=== PATIENT | male | born 1995 | race Caucasian/White ===

== ENCOUNTER 2016-11-12 19:50 | Emergency (ER) | payer BC ==
[~2016-11-12] VITALS: Ht 172.7 cm; Wt 56.7 kg
[2016-11-12] MEDS ORDERED: TETANUS/DIPHTHERIA TOX ADSORB ADULT 0.5ML SYR/VIAL (90714) IM ONE (20:15)
[2016-11-12 21:03] VITALS: BP 134/76
--- NOTE | 2016-11-15 10:38 | REP ---
Clinical: Trauma . Comparison: None . Findings: The ventricles, sulci, and cisterns are normal in position and appearance. Schaffer-white differentiation is maintained. No acute intracranial hemorrhage, mass, pathology or trauma/injury. Cystic structure in the left temporal fossa likely represents arachnoid cyst. No evidence for acute infarction. No extra-axial fluid collection. Calvarium is intact. Paranasal sinuses and mastoid air cells are clear. Impression: Presumed arachnoid cyst in the left temporal fossa. No evidence for acute intracranial pathology or trauma/injury. Signed by Felipe Delgado MD 11/15/2016 10:29 A
--- NOTE | 2016-11-19 15:29 | ED PDOC ---
Post-Departure Follow-Up certitied letter sent to pt re formal read of ct head for fu Leslie Richardson MD Nov 19, 2016 15:29
== END 2016-11-12 21:08 | disposition home or self-care (01) ==
LOC: EDBD 19:50 → M ED 20:50
DX: R55 Syncope and collapse (principal); S61.212A Laceration without foreign body of right middle finger without damage to nail, initial encounter; W18.09XA Striking against other object with subsequent fall, initial encounter; Y92.830 Public park as the place of occurrence of the external cause; Y93.89 Activity, other specified; Y99.8 Other external cause status; F32.9 Major depressive disorder, single episode, unspecified; R41.9 Unspecified symptoms and signs involving cognitive functions and awareness

== ENCOUNTER 2017-04-06 12:50 | Emergency (ER) | payer BC ==
[~2017-04-06] VITALS: Ht 172.7 cm; Wt 56.8 kg
[2017-04-06 12:50] VITALS: BP 128/81
[2017-04-06] MEDS ORDERED: PENI500T PO (14:30)
[2017-04-06] MEDS ORDERED: NORCOTAB PO (14:30)
== END 2017-04-06 14:38 | disposition home or self-care (01) ==
LOC: M ED 12:50
DX: K04.7 Periapical abscess without sinus (principal); K02.9 Dental caries, unspecified; F17.210 Nicotine dependence, cigarettes, uncomplicated

== ENCOUNTER 2017-06-28 23:17 | Inpatient (IN) | payer BC ==
[2017-06-29 00:40] LABS: MEAN CORPUSCULAR HEMOGLOBIN 28.3 pg (27.0-33.0); MEAN CORPUSCULAR HGB CONC 33.3 g/dl (32.0-36.5); PLATELET COUNT, AUTOMATED 289 10^3/uL (150-450); RED BLOOD COUNT 4.94 10^6/uL (4.30-6.10); WHITE BLOOD COUNT 8.8 10^3/uL (4.0-10.0)
[2017-06-29 01:09] LABS: CALCIUM OXALATE CRYSTALS RFX SMALL; KETONE, URINE AUTO RFX TRACE mg/dL (NEGATIVE); LEUKOCYTE ESTERASE UR AUTO RFX NEGATIVE (NEGATIVE); MUCUS, URINE RFX SMALL (NEGATIVE); NITRITE, URINE AUTO RFX NEGATIVE (NEGATIVE); RBC, URINE AUTO RFX 1 /HPF (0-3); SQUAM EPITHELIAL CELL UR AURFX 0 /HPF (0-6); WBC, URINE AUTO RFX 1 /HPF (0-3)
[2017-06-29 01:16] LABS: AMPHETAMINES LEVEL URINE NEGATIVE (NEGATIVE); BARBITURATES URINE NEGATIVE (NEGATIVE); BENZODIAZEPINES URINE NEGATIVE (NEGATIVE); CANNABINOIDS URINE POSITIVE (NEGATIVE); COCAINE METABOLITE URINE NEGATIVE (NEGATIVE); METHADONE URINE NEGATIVE (NEGATIVE); OPIATES URINE NEGATIVE (NEGATIVE); PHENCYCLIDINE URINE NEGATIVE (NEGATIVE)
[2017-06-29 01:25] LABS: ALBUMIN 4.6 GM/DL (3.2-5.2); ALBUMIN/GLOBULIN RATIO 1.53 (1.00-1.93); ALKALINE PHOSPHATASE 73 U/L (45-117); ALT/SGPT 20 U/L (12-78); ANION GAP 9 MEQ/L (8-16); AST/SGOT 12 U/L (7-37); BILIRUBIN,DIRECT 0.2 MG/DL (0.0-0.2); BILIRUBIN,TOTAL 0.7 MG/DL (0.2-1.0); BLOOD UREA NITROGEN 14 MG/DL (7-18); CALCIUM LEVEL 9.2 MG/DL (8.5-10.1); CARBON DIOXIDE LEVEL 28 MEQ/L (21-32); CHLORIDE LEVEL 105 MEQ/L (98-107); CREATININE FOR GFR 1.06 MG/DL (0.70-1.30); GLOMERULAR FILTRATION RATE > 60.0 (>60); GLUCOSE, FASTING 88 MG/DL (70-105); POTASSIUM SERUM 3.6 MEQ/L (3.5-5.1); SALICYLATE LEVEL < 1.7 MG/DL (5.0-30.0); SODIUM LEVEL 142 MEQ/L (136-145); TOTAL PROTEIN 7.6 GM/DL (6.4-8.2)
[2017-06-29 01:31] LABS: ACETAMINOPHEN LEVEL < 2.0 UG/ML (10.0-30.0); ETHYL ALCOHOL (ETHANOL) < 0.003 % (0.000-0.010)
[2017-06-29] MEDS ORDERED: MAALOX 30 ML SUSP *UDC PO (02:00)
[2017-06-29] MEDS ORDERED: ACETAMINOPHEN TAB 650MG DOSE (2X325MG) PO (02:00)
[2017-06-29] MEDS: traZODone 50 MG TAB PO ×2 (04:19→20:05)
[2017-06-29] MEDS: hydrOXYzine 50 MG TAB PO (04:19)
[2017-06-29] MEDS: NICOTINE 21MG/24HR 1 EA TRANSDERMAL TD (08:50)
[2017-06-29] MEDS: OLANZapine ORAL DISINTEGRATING TAB 5MG PO ×2 (09:42→20:06)
[2017-06-29] MEDS: LORazepam 1 MG TAB PO ×2 (10:22→20:05)
[2017-06-29] MEDS: ARIPiprazole 15 MG TAB (AbiLIFY) PO ×2 (10:22→20:06)
[2017-06-30] MEDS: ARIPiprazole 15 MG TAB (AbiLIFY) PO (08:03)
[2017-06-30] MEDS: NICOTINE 21MG/24HR 1 EA TRANSDERMAL TD (08:06)
[2017-06-30] MEDS: INFLUENZA QUADRIVALENT PF VACCINE 0.5ML SYRINGE (90686) IM (08:07)
[2017-06-30] MEDS: ARIPiprazole 10 MG TAB PO (20:19)
[2017-06-30] MEDS: traZODone 50 MG TAB PO (20:45)
[2017-06-30] MEDS: LORazepam 1 MG TAB PO (20:45)
[2017-07-01] MEDS: ARIPiprazole 10 MG TAB PO ×2 (08:04→20:34)
[2017-07-01] MEDS: NICOTINE 21MG/24HR 1 EA TRANSDERMAL TD (08:05)
[2017-07-01] MEDS: MOM 30ML SUSPENSION UDC PO (08:57)
[2017-07-01] MEDS: traZODone 50 MG TAB PO (20:34)
[2017-07-02] MEDS: NICOTINE 21MG/24HR 1 EA TRANSDERMAL TD ×2 (09:00→09:43)
[2017-07-02] MEDS: ARIPiprazole 10 MG TAB PO ×2 (09:01→21:43)
[2017-07-02] MEDS: traZODone 50 MG TAB PO (21:43)
[2017-07-03] MEDS: ARIPiprazole 10 MG TAB PO (08:15)
[2017-07-03] MEDS: NICOTINE 21MG/24HR 1 EA TRANSDERMAL TD (08:16)
== END 2017-07-03 11:30 | disposition home or self-care (01) | DRG 753 ==
LOC: M ED 23:17 → M ED INP 06-29 01:59 → M PSY 06-29 03:01
DX: F31.9 Bipolar disorder, unspecified (principal); F19.94 Other psychoactive substance use, unspecified with psychoactive substance-induced mood disorder; F12.90 Cannabis use, unspecified, uncomplicated; F79 Unspecified intellectual disabilities; Z79.899 Other long term (current) drug therapy; F17.200 Nicotine dependence, unspecified, uncomplicated

== ENCOUNTER → 2017-06-28 | Outpatient (REF) | payer BC ==
[2017-06-29 14:36] LABS: AMPHETAMINES URINE REFLEX NEGATIVE (NEGATIVE); BARBITURATES URINE REFLEX NEGATIVE (NEGATIVE); BENZODIAZEPINES URINE REFLEX NEGATIVE (NEGATIVE); COCAINE METABOLITE URINE REFLE NEGATIVE (NEGATIVE); METHADONE URINE REFLEX NEGATIVE (NEGATIVE); OPIATES URINE REFLEX NEGATIVE (NEGATIVE); PHENCYCLIDINE URINE REFLEX NEGATIVE (NEGATIVE)
[2017-06-29 14:50] LABS: CANNABINOIDS URINE REFLEX POSITIVE (NEGATIVE)
[2017-07-04 08:07] LABS: Cannabinoid Positive (.); GC Carboxy THC 126 ng/mL (Cutoff=10)
== END ==
LOC: M OUTALCOH 06-29 12:50
DX: F12.10 Cannabis abuse, uncomplicated (principal)
CPT/HCPCS: G0480

== ENCOUNTER 2017-07-07 18:38 | Emergency (ER) | payer BC ==
[2017-07-07] MEDS: ONDANSETRON 4 MG ORAL DISINTEGRATING TAB (S0181) PO (20:03)
== END 2017-07-07 20:14 | disposition home or self-care (01) ==
LOC: M ED 18:38
DX: R10.13 Epigastric pain (principal); R11.0 Nausea; T50.905A Adverse effect of unspecified drugs, medicaments and biological substances, initial encounter; Y92.89 Other specified places as the place of occurrence of the external cause; F31.9 Bipolar disorder, unspecified; F41.9 Anxiety disorder, unspecified; F17.210 Nicotine dependence, cigarettes, uncomplicated; Z79.899 Other long term (current) drug therapy
CPT/HCPCS: 99283

== ENCOUNTER → 2017-07-16 | Outpatient (CLI) | payer BC ==
[2017-07-16 17:30] LABS: CHOLESTEROL LEVEL 139 MG/DL (<200); CHOLESTEROL RISK RATIO 2.044 (<5); HDL CHOLESTEROL 68 MG/DL (>40); NON-HDL-C 71 MG/DL; TRIGLYCERIDES LEVEL 145 MG/DL (<150)
[2017-07-16 17:37] LABS: BASO # 0.1 10^3/uL (0.0-0.2); BASO % 0.7 % (0.0-1.0); EOS # 0.4 10^3/uL (0.0-0.50); EOS % 4.6 % (0.0-3.0); HEMATOCRIT 42.9 % (42.0-52.0); HEMOGLOBIN 14.1 g/dl (14.0-18.0); IMMATURE GRANULOCYTE % 0.5 % (0-0); LYMPH # 2.7 10^3/uL (1.5-6.5); LYMPH % 35.6 % (24.0-44.0); MEAN CORPUSCULAR HEMOGLOBIN 28.7 pg (27.0-33.0); MEAN CORPUSCULAR HGB CONC 32.9 g/dl (32.0-36.5); MEAN CORPUSCULAR VOLUME 87.4 fl (80.0-96.0); MONO # 0.4 10^3/uL (0.0-0.8); MONO % 5.7 % (0.0-5.0); NEUTROPHILS # 4.1 10^3/uL (1.8-7.7); NEUTROPHILS % 52.9 % (36.0-66.0); PLATELET COUNT, AUTOMATED 260 10^3/uL (150-450); RED BLOOD COUNT 4.91 10^6/uL (4.30-6.10); RED CELL DISTRIBUTION WIDTH 12.4 % (11.5-14.5); WHITE BLOOD COUNT 7.7 10^3/uL (4.0-10.0)
[2017-07-16 17:38] LABS: ESTIMATED AVERAGE GLUCOSE 111 MG/DL (60-110); HEMOGLOBIN A1c 5.5 %
[2017-07-16 17:48] LABS: TOTAL 25(OH) VITAMIN D 31.4 NG/ML (30.0-100.0)
== END ==
LOC: M LAB 15:32
DX: F31.2 Bipolar disorder, current episode manic severe with psychotic features (principal)

== ENCOUNTER → 2017-08-09 | Outpatient (REF) | payer BC ==
[2017-08-09 13:23] LABS: BASO # 0.1 10^3/uL (0.0-0.2); BASO % 0.8 % (0.0-1.0); EOS # 0.5 10^3/uL (0.0-0.50); EOS % 6.8 % (0.0-3.0); HEMATOCRIT 44.3 % (42.0-52.0); HEMOGLOBIN 14.8 g/dl (14.0-18.0); IMMATURE GRANULOCYTE % 0.3 % (0-3.0); LYMPH # 2.4 10^3/uL (1.5-6.5); MEAN CORPUSCULAR HEMOGLOBIN 28.7 pg (27.0-33.0); MEAN CORPUSCULAR HGB CONC 33.4 g/dl (32.0-36.5); MONO # 0.6 10^3/uL (0.0-0.8); NEUTROPHILS # 3.8 10^3/uL (1.8-7.7); NEUTROPHILS % 51.1 % (36.0-66.0); PLATELET COUNT, AUTOMATED 292 10^3/uL (150-450); RED BLOOD COUNT 5.15 10^6/uL (4.30-6.10); RED CELL DISTRIBUTION WIDTH 12.5 % (11.5-14.5); WHITE BLOOD COUNT 7.3 10^3/uL (4.0-10.0)
[2017-08-09 13:56] LABS: TOTAL 25(OH) VITAMIN D 37.6 NG/ML (30.0-100.0)
[2017-08-09 13:57] LABS: ALBUMIN 4.3 GM/DL (3.2-5.2); ALBUMIN/GLOBULIN RATIO 1.39 (1.00-1.93); ALKALINE PHOSPHATASE 75 U/L (45-117); ALT/SGPT 31 U/L (12-78); ANION GAP 7 MEQ/L (8-16); AST/SGOT 20 U/L (7-37); BILIRUBIN,TOTAL 0.4 MG/DL (0.2-1.0); BLOOD UREA NITROGEN 20 MG/DL (7-18); CALCIUM LEVEL 9.2 MG/DL (8.5-10.1); CARBON DIOXIDE LEVEL 30 MEQ/L (21-32); CHLORIDE LEVEL 104 MEQ/L (98-107); CREATININE FOR GFR 0.98 MG/DL (0.70-1.30); FREE T4 1.02 NG/DL (0.76-1.46); GLOMERULAR FILTRATION RATE > 60.0 (>60); GLUCOSE, FASTING 84 MG/DL (70-100); POTASSIUM SERUM 4.4 MEQ/L (3.5-5.1); SODIUM LEVEL 141 MEQ/L (136-145); TOTAL PROTEIN 7.4 GM/DL (6.4-8.2)
== END ==
LOC: M SFHCPLAZ 11:32
DX: Z00.00 Encounter for general adult medical examination without abnormal findings (principal); F31.9 Bipolar disorder, unspecified; E55.9 Vitamin D deficiency, unspecified
CPT/HCPCS: 84443

== ENCOUNTER 2017-08-18 14:45 | Emergency (ER) | payer BC | END 2017-08-18 15:55 | disposition home or self-care (01) | LOC: M ED 14:45 | DX: R68.84 Jaw pain (principal); K08.89 Other specified disorders of teeth and supporting structures; F17.210 Nicotine dependence, cigarettes, uncomplicated; Z79.899 Other long term (current) drug therapy | CPT/HCPCS: 99282 ==

== ENCOUNTER → 2019-07-10 | Outpatient (CLI) | payer BC ==
[~2019-07-10] MED LIST: ACET500T15 PO; ARIP1TAB PO; BENA25CA4 PO; EXCETAB80 PO; HYDR-3715 PO; NAPR-837 PO; OLAN5ZYD PO; PENI500T PO; TRAZ1TAB10 PO; ZOFR4TAB14 PO
--- NOTE | 2019-07-11 03:19 | REP ---
Clinical: Left inguinal pain. Technique: Real time patel scale ultrasound examination using linear high frequency transducer. Findings: Small bilateral fat containing reducible inguinal hernias are noted. Right inguinal defect on Valsalva measures up to approximately 8.3 mm diameter. Left inguinal defect on Valsalva measures approximately 11 mm. Impression: Small fat containing reducible inguinal hernias. Electronically Signed by Felipe Delgado MD 07/11/2019 03:10 A
== END ==
LOC: M RAD 16:56
PROVIDERS: ATTEND Nurse Practitioner Family
DX: K40.90 Unilateral inguinal hernia, without obstruction or gangrene, not specified as recurrent (principal)

== ENCOUNTER → 2019-09-01 | Outpatient (CLI) | payer BC ==
[2019-09-01 12:06] LABS: CHOLESTEROL RISK RATIO 2.344 (<5)
[2019-09-01 12:23] LABS: HEMOGLOBIN A1c 5.8 %
== END ==
LOC: M PLALAB 10:33
PROVIDERS: ATTEND Student in an Organized Health Care Education/Training Program
DX: F31.2 Bipolar disorder, current episode manic severe with psychotic features (principal); F12.10 Cannabis abuse, uncomplicated; F79 Unspecified intellectual disabilities; F17.200 Nicotine dependence, unspecified, uncomplicated

== ENCOUNTER 2019-10-05 18:41 | Observation (INO) | payer BC ==
[~2019-10-05] VITALS: Ht 170.2 cm; Wt 67.5 kg
[2019-10-05] MEDS ORDERED: QUET200T2 PO (19:08)
[2019-10-05 19:46] LABS: BASO # 0.1 10^3/uL (0.0-0.2); BASO % 0.6 % (0.0-1.0); EOS # 0.7 10^3/uL (0.0-0.5); EOS % 8.7 % (0.0-3.0); HEMATOCRIT 44.3 % (42.0-52.0); HEMOGLOBIN 14.7 g/dl (13.5-17.5); LYMPH % 37.6 % (24.0-44.0); MEAN CORPUSCULAR HEMOGLOBIN 28.4 pg (27.0-33.0); MEAN CORPUSCULAR HGB CONC 33.2 g/dl (32.0-36.5); MEAN CORPUSCULAR VOLUME 85.7 fl (80.0-96.0); MONO # 0.5 10^3/uL (0.0-0.8); MONO % 6.6 % (0.0-5.0); NEUTROPHILS # 3.7 10^3/uL (1.5-8.5); NEUTROPHILS % 46.4 % (36.0-66.0); PLATELET COUNT, AUTOMATED 264 10^3/uL (150-450); RED BLOOD COUNT 5.17 10^6/uL (4.30-6.10); WHITE BLOOD COUNT 7.9 10^3/uL (4.0-10.0)
[2019-10-05 19:48] LABS: APPEARANCE, URINE CLEAR (CLEAR); BACTERIA, URINE AUTO NEGATIVE (NEGATIVE); BILIRUBIN, URINE AUTO NEGATIVE (NEGATIVE); BLOOD, URINE BLOOD NEGATIVE (NEGATIVE); COLOR, URINE STRAW (YELLOW); GLUCOSE, URINE (UA) AUTO NEGATIVE (NEGATIVE); KETONE, URINE AUTO NEGATIVE (NEGATIVE); LEUKOCYTE ESTERASE, URINE AUTO NEGATIVE (NEGATIVE); NITRITE, URINE AUTO NEGATIVE (NEGATIVE); PROTEIN, URINE AUTO NEGATIVE (NEGATIVE); RBC, URINE AUTO 0 /HPF (0-3); SQUAMOUS EPITHELIAL CELL UR AU 0 /HPF (0-6); UROBILINOGEN, URINE AUTO 0.2 mg/dL (0.0-2.0); WBC, URINE AUTO 0 /HPF (0-3)
[2019-10-05 20:10] LABS: ALT/SGPT 53 U/L (12-78); BILIRUBIN,DIRECT < 0.1 MG/DL (0.0-0.2); BILIRUBIN,TOTAL 0.4 MG/DL (0.2-1.0); BLOOD UREA NITROGEN 14 MG/DL (7-18); CALCIUM LEVEL 8.7 MG/DL (8.5-10.1); CARBON DIOXIDE LEVEL 28 MEQ/L (21-32); CHLORIDE LEVEL 106 MEQ/L (98-107); GLOMERULAR FILTRATION RATE > 60.0 (>60); GLUCOSE, FASTING 96 MG/DL (70-100); LIPASE 105 U/L (73-393); POTASSIUM SERUM 4.3 MEQ/L (3.5-5.1); SODIUM LEVEL 140 MEQ/L (136-145); TOTAL PROTEIN 7.1 GM/DL (6.4-8.2)
[2019-10-05] MEDS ORDERED: KETOROLAC 30 MG/ML 1ML VIAL IV ONE (20:15)
--- NOTE | 2019-10-05 20:29 | REPVR ---
PROCEDURE INFORMATION: Exam: US Pelvis Limited, Male Exam date and time: 10/05/2019 8:07 PM Age: 23 years old Clinical indication: Pelvic pain; Additional info: Left inguinal hernia TECHNIQUE: Imaging protocol: Real-time pelvic ultrasound with image documentation. COMPARISON: Pelvis, limited US 07/10/2019 5:10 PM FINDINGS: Soft tissues: Bilateral inguinal hernias demonstrated, left larger than right. Of note the left-sided inguinal hernia is larger than demonstrated previously extending the entire length of the inguinal canal and is not reducible by palpation with the ultrasound probe. IMPRESSION: Bilateral inguinal hernias as described above. The larger left inguinal hernia is not reducible via palpation. Electronically signed by: Titi Peña On 10/05/2019 20:29:29 PM
[2019-10-05] MEDS ORDERED: ONDANSETRON 4MG/2ML VIAL IV ONE (20:45)
[2019-10-05] MEDS ORDERED: MORPHINE 4 MG/ML 1ML VIAL/SYRINGE (J2270) IV ONE (20:45)
[2019-10-05] MEDS ORDERED: MORPHINE 2 MG/ML 1ML VIAL (J2270) IV ONE ×2 (21:30→22:00)
[2019-10-05] MEDS ORDERED: ULTRACET TAB PO PRN (21:45)
[2019-10-05] MEDS ORDERED: MORPHINE 2 MG/ML 1ML VIAL (J2270) IV PRN (21:45)
[2019-10-05] MEDS ORDERED: NORCO, ANEXSIA 5/325MG TABLET (HYDROcodone/ACETAMINOPHEN) PO PRN (21:45)
[2019-10-05] MEDS: D5W/LR 1,000 ML IV SCH (22:14)
[2019-10-05 23:15] VITALS: BP 124/74
[2019-10-06] VITALS (11 sets, daily range): BP systolic 99–136; BP diastolic 54–84
[2019-10-06] MEDS ORDERED: KETOROLAC 30 MG/ML 1ML VIAL IV PRN (02:00)
[2019-10-06] MEDS: D5W/LR 1,000 ML IV SCH (06:14)
[2019-10-06] MEDS: PANTOPRAZOLE 40MG TAB (PROTONIX) PO SCH (08:34)
[2019-10-06] MEDS ORDERED: NICOTINE 21MG/24HR 1 EA TRANSDERMAL TD PRN (10:30)
--- NOTE | 2019-10-06 10:43 | HPE ---
DATE OF ADMISSION: 10/05/2019 HISTORY OF PRESENT ILLNESS: The patient is a 23-year-old male who presents to the emergency room with groin pain. He has had an inguinal hernia that has been noticeable for the last year, but over the last month it has become much more uncomfortable. Whenever he is doing heavy lifting or strenuous work, he has noticed more pain and discomfort in the area. Over the last 24 hours, he has had significant more pain that has been problematic and he returns to the emergency room for this because he notices that it just does not slide back in like it was previously. He has not had any fevers or chills. No nausea or vomiting. No evidence of obstruction. From a GI standpoint, no complaints. PAST MEDICAL HISTORY: Significant for history of chronic headaches, head trauma, history of depressio, and history of bipolar disorder. MEDICATIONS: Include the following, quetiapine fumarate 200 mg by mouth at bedtime and Tylenol for discomfort. PHYSICAL EXAMINATION: Reveals a 23-year-old male who looks stated age. HEENT is unremarkable. Neck: Supple, without adenopathy. Lungs: Clear to auscultation. Without crackles, wheezes or rhonchi. Heart is regular, without murmur. Abdomen: Soft, nondistended, nontender. However, in his left inguinal area, he does have a hernia that is difficult to reduce, but after some gentle pressure that is persistent pressure in this area I was able to reduce the hernia and it reduced quite nicely. I could feel the fascial ring. IMPRESSION AND PLAN: The patient still has some significant discomfort with his hernia and it comes out very easily. I do feel that he needs more of an urgent intervention/operative repair. Now that we have reduced it, fortunately, I do feel that a robotic left inguinal hernia repair would be appropriate. Will schedule that for him tomorrow. He understands the risks as well as benefits associated with operative intervention, those including but not limited to infection, bleeding, damage to surrounding structures, as well as possible need for open operative intervention/bowel resection, etc., although those are unlikely at this time. The patient would like to proceed with this as soon as possible. Thus, we will admit him overnight and plan on operative intervention tomorrow for this.
[2019-10-06] MEDS ORDERED: ceFAZolin 1GM VIAL (J0690 PER 500MG) As Ordered ONE (11:12)
[2019-10-06] MEDS ORDERED: ceFAZolin SOD 1 GM in D5W MINI-BAG PLUS 50 ML IV ONE (11:15)
[2019-10-06] MEDS ORDERED: fentaNYL 250 MCG/5 ML INJECTION (J3010) As Ordered ONE (11:16)
[2019-10-06] MEDS ORDERED: MIDAZOLAM INJ 2MG/2ML VIAL (J2250 PER 1MG) As Ordered ONE (11:16)
[2019-10-06] MEDS ORDERED: propofoL 200 MG/20 ML VIAL As Ordered ONE ×2 (11:17→11:39)
[2019-10-06] MEDS ORDERED: LIDOCAINE 2% 100MG/5ML SDV (FOR ANES.) As Ordered ONE (11:17)
[2019-10-06] MEDS ORDERED: BUPIVACAINE/EPIN 0.25% 30 ML VIAL As Ordered ONE (11:19)
[2019-10-06] MEDS ORDERED: ROCURONIUM BROMIDE 50 MG/5 ML VIAL As Ordered ONE (11:21)
[2019-10-06] MEDS ORDERED: SUCCINYLCHOLINE 100 MG/5 ML SYRINGE (J0330) As Ordered ONE (11:50)
[2019-10-06] MEDS ORDERED: dexameTHASONE 4 MG/ML 1ML VIAL (J1100 PER 1MG) As Ordered ONE (11:50)
[2019-10-06] MEDS ORDERED: ePHEDrine SULFATE 25 MG/5 ML(5MG/ML) SYRINGE As Ordered ONE (12:01)
[2019-10-06] MEDS ORDERED: ONDANSETRON 4MG/2ML VIAL As Ordered ONE ×2 (12:01→13:36)
[2019-10-06] MEDS ORDERED: SUGAMMADEX SODIUM 500 MG/5 ML VIAL (BRIDION) As Ordered ONE (12:01)
[2019-10-06] MEDS ORDERED: PHENYLephrine HCL 500 MCG/5 ML (100MCG/ML) SYRINGE (J2370) As Ordered ONE (12:02)
[2019-10-06] MEDS ORDERED: ACETAMINOPHEN 1000MG 100ML IV BTL (OFIRMEV) (J0131 PER 10MG) As Ordered ONE (12:09)
[2019-10-06] MEDS ORDERED: oxyCODONE 5MG TAB As Ordered ONE ×2 (13:36→14:20)
[2019-10-06] MEDS ORDERED: HYDROMORPHONE HCL 0.5 MG/ 0.5 ML SYRINGE (J1170 PER 1) As Ordered ONE ×2 (13:36→14:11)
--- NOTE | 2019-10-06 13:36 | RO ---
DATE OF PROCEDURE: 10/06/2019 PREOPERATIVE DIAGNOSIS: Incarcerated left inguinal hernia. POSTOPERATIVE DIAGNOSIS: Incarcerated left inguinal hernia. PROCEDURE: Robotic-assisted laparoscopic left inguinal hernia repair with ProGrip mesh. SURGEON: Dr. Gustabo Barron. MECHANICAL SERVICE TECHNICIAN: PETER Capps (provided instrument exchange, trocar placement, trocar site closure mesh insertion). ESTIMATED BLOOD LOSS: Minimal. FLUIDS: Crystalloid. DESCRIPTION OF PROCEDURE: The patient was brought to the operating room was given general anesthesia. After adequate anesthesia and preoperative antibiotics were given, the patient was prepped and draped in sterile fashion. Next a supraumbilical incision was made with skin knife. Blunt dissection was carried down to fascia. Fascia was entered with Veress needle, insufflated to 15 mm of pressure. Dilating 8 mm trocar was placed and under direct visualization, two lateral trocars were placed. The robot was docked. The patient was placed in Trendelenburg and then the peritoneum was taken down on the left side using monopolar cut scissors. The peritoneum was mobilized using mostly blunt dissection and some electrocautery on the loose areolar tissue. Eventually, the Alfonso's ligament was well visualized. The inguinal hernia was reduced from the inguinal canal. There was a small lipoma of the cord, which was transected at its base but otherwise the hernia was some mobilized out of the canal and off cord structures. ProGrip mesh was cut to the appropriate size, placed in the preperitoneal space and pressed into position. Next the peritoneum was closed with a running #3-0 V-Loc suture under decrease pressures and the trocars were removed under direct visualization. #4-0 Vicryl was used close all skin incisions. Steri-Strips and dry sterile dressing was applied. The patient was awakened, extubated, brought to recovery room awake, alert, hemodynamically stable. Sponge and needle counts correct times two.
[2019-10-06] MEDS: HYDROMORPHONE HCL 0.5 MG/ 0.5 ML SYRINGE (J1170 PER 1) IV PRN ×4 (13:37→14:17)
[2019-10-06] MEDS ORDERED: LR 1,000 ML IV SCH ×2 (13:45→14:00)
[2019-10-06] MEDS ORDERED: fentaNYL 100 MCG/2 ML INJECTION (J3010) IV PRN (13:45)
[2019-10-06] MEDS ORDERED: ONDANSETRON 4MG/2ML VIAL IV PRN ×2 (13:45→21:00)
[2019-10-06] MEDS: oxyCODONE 5MG TAB PO PRN ×2 (13:52→14:22)
[2019-10-06] MEDS ORDERED: KETOROLAC 30 MG/ML 1ML VIAL IV ONE (14:00)
[2019-10-06] MEDS: NORCO, ANEXSIA 5/325MG TABLET (HYDROcodone/ACETAMINOPHEN) PO PRN ×2 (16:30→20:51)
[2019-10-06] MEDS ORDERED: QUEtiapine FUMARATE 200 MG TAB PO SCH (21:00)
[2019-10-07 02:00] VITALS: BP 119/59
[2019-10-07 06:00] VITALS: BP 119/68
[2019-10-07] MEDS ORDERED: HYDR-3715 PO (08:50)
[2019-10-07] MEDS ORDERED: IBUP-1022 PO (08:50)
[2019-10-07] MEDS: PANTOPRAZOLE 40MG TAB (PROTONIX) PO SCH (09:30)
[2019-10-07] MEDS: NORCO, ANEXSIA 5/325MG TABLET (HYDROcodone/ACETAMINOPHEN) PO PRN (09:31)
[2019-10-07 10:00] VITALS: BP 119/71
== END 2019-10-07 10:49 | disposition home or self-care (01) ==
LOC: M ED 18:41 → M ED INP 21:36 → ENRESERVTM 22:16 → ENRESERVDT 22:16 → M MSPAV 23:13
PROVIDERS: ADMIT Surgery; ATTEND Surgery
DX: K40.30 Unilateral inguinal hernia, with obstruction, without gangrene, not specified as recurrent (principal); J45.909 Unspecified asthma, uncomplicated; F41.9 Anxiety disorder, unspecified; F32.9 Major depressive disorder, single episode, unspecified; F20.9 Schizophrenia, unspecified; F17.218 Nicotine dependence, cigarettes, with other nicotine-induced disorders; Z79.899 Other long term (current) drug therapy
CPT/HCPCS: 49650; 76857; 80048; 80076; 81001; 83605; 83690; 85025; 96361; 96374; 96375; 96376; 99284; C1781; J0131; J0330; J1100; J1885; J2250; J2270; J2370; J2405; J3010

== ENCOUNTER 2020-02-18 22:43 | Emergency (ER) | payer BC ==
[~2020-02-18] VITALS: Ht 172.7 cm; Wt 65.0 kg
[~2020-02-18 22:43] MED LIST changes: +IBUP-1022 PO; +QUET200T2 PO
--- NOTE | 2020-02-18 23:11 | REPVR ---
PROCEDURE INFORMATION: Exam: XR Abdomen, 1 View Exam date and time: 02/18/2020 11:06 PM Age: 24 years old Clinical indication: Other: Constipation TECHNIQUE: Imaging protocol: XR of the abdomen. Views: Frontal supine view of the abdomen. 1 View. COMPARISON: No relevant prior studies available. FINDINGS: Gastrointestinal tract: No evidence of small bowel obstruction. No evidence of rectal fecal impaction and normal volume of stool within the right side of the colon. Intraperitoneal space: No pneumoperitoneum. No abnormal calcifications. Bones/joints: Visualized bony structures are unremarkable. IMPRESSION: No acute intra-abdominal or pelvic process. No evidence of excessive colonic stool or rectal fecal impaction Electronically signed by: Matty Mclean On 02/18/2020 23:11:07 PM
[2020-02-18] MEDS ORDERED: ANUSOL HC 25MG SUPP PR STA (23:47)
[2020-02-18] MEDS ORDERED: DESI13CR2 TOP (23:52)
[2020-02-18] MEDS ORDERED: ANUS25SU PR (23:52)
[2020-02-18] MEDS ORDERED: COLA100C5 PO (23:52)
[2020-02-19] MEDS ORDERED: DOCUSATE SODIUM 100 MG CAP PO ONE
[2020-02-19 00:17] VITALS: BP 135/82
== END 2020-02-19 00:19 | disposition home or self-care (01) ==
LOC: M ED 22:43
DX: K62.3 Rectal prolapse (principal); J45.909 Unspecified asthma, uncomplicated; Z79.899 Other long term (current) drug therapy

== ENCOUNTER → 2020-06-01 | Outpatient (CLI) | payer BC ==
[~2020-06-01] MED LIST changes: +ANUS25SU PR; +COLA100C5 PO; +DESI13CR2 TOP
[2020-06-01 11:30] LABS: HEMOGLOBIN A1c 5.6 %
[2020-06-01 11:35] LABS: BLOOD UREA NITROGEN 22 MG/DL (7-18); CALCIUM LEVEL 9.3 MG/DL (8.5-10.1); CARBON DIOXIDE LEVEL 30 MEQ/L (21-32); CHLORIDE LEVEL 107 MEQ/L (98-107); CHOLESTEROL LEVEL 149 MG/DL (<200); CHOLESTEROL RISK RATIO 2.403 (<5); CREATININE FOR GFR 1.22 MG/DL (0.70-1.30); GLOMERULAR FILTRATION RATE > 60.0 (>60); GLUCOSE, FASTING 95 MG/DL (70-100); HDL CHOLESTEROL 62 MG/DL (>40); LDL CHOLESTEROL 71 MG/DL (<100); NON-HDL-C 87 MG/DL; POTASSIUM SERUM 4.5 MEQ/L (3.5-5.1); SODIUM LEVEL 141 MEQ/L (136-145); TRIGLYCERIDES LEVEL 81 MG/DL (<150)
== END ==
LOC: M PLALAB 08:24
PROVIDERS: ATTEND Student in an Organized Health Care Education/Training Program
DX: Z79.899 Other long term (current) drug therapy (principal)

== ENCOUNTER 2020-06-19 20:39 | Emergency (ER) | payer BC ==
[~2020-06-19] VITALS: Ht 170.2 cm; Wt 59.1 kg
[2020-06-19 20:39] VITALS: BP 143/88
[2020-06-19] MEDS ORDERED: HYDR-3713 PO (21:26)
[2020-06-19] MEDS ORDERED: NAPR-837 PO (21:26)
[2020-06-19] MEDS ORDERED: AUGM875T28 PO (21:26)
[2020-06-19] MEDS ORDERED: NORCO 5/325MG TABLET (BULK FOR ED) PO ONE (21:30)
[2020-06-19] MEDS ORDERED: AUGMENTIN 875 MG TAB PO ONE (21:30)
== END 2020-06-19 21:37 | disposition home or self-care (01) ==
LOC: M ED 20:39
DX: K02.9 Dental caries, unspecified (principal); F17.200 Nicotine dependence, unspecified, uncomplicated; F12.10 Cannabis abuse, uncomplicated

== ENCOUNTER 2020-07-27 16:51 | Emergency (ER) | payer OTHER, BC ==
[~2020-07-27] VITALS: Ht 170.2 cm; Wt 61.4 kg
[~2020-07-27 16:51] MED LIST changes: +AUGM875T28 PO; +HYDR-3713 PO
[2020-07-27] MEDS ORDERED: NEOSPORIN OINT 0.9 GM PKT TOP ONE (18:15)
--- NOTE | 2020-07-27 18:29 | REP ---
INDICATION: dog bite superficial, R/O fx COMPARISON: None. TECHNIQUE: Two views left wrist. FINDINGS: There is no evidence of acute fracture, dislocation, or intrinsic bone disease.No radiopaque foreign body is seen in the soft tissues. IMPRESSION: No radiopaque foreign body is seen in the soft tissues. No acute fracture. <Electronically signed by Dennis Schaffer > 07/27/20 [id number]
[2020-07-27] MEDS ORDERED: AUGMENTIN 875 MG TAB PO ONE (18:45)
[2020-07-27] MEDS ORDERED: AUGM875T28 PO (19:29)
[2020-07-27 19:55] VITALS: BP 126/81
== END 2020-07-27 20:04 | disposition home or self-care (01) ==
LOC: M ED 16:51 → EDBD 16:51 → M ED 20:04
DX: S61.502A Unspecified open wound of left wrist, initial encounter (principal); W54.0XXA Bitten by dog, initial encounter; Y92.89 Other specified places as the place of occurrence of the external cause; Y99.0 Civilian activity done for income or pay; J45.909 Unspecified asthma, uncomplicated; F20.9 Schizophrenia, unspecified; R51.9 Headache, unspecified; Z79.899 Other long term (current) drug therapy

== ENCOUNTER → 2020-11-22 | Outpatient (CLI) | payer BC | LOC: M OUTALCOH 08:06 | PROVIDERS: ATTEND Psychiatry & Neurology Psychiatry | DX: F10.10 Alcohol abuse, uncomplicated (principal) ==

== ENCOUNTER 2020-11-30 13:11 | Outpatient (RCR) | payer BC | END 2020-12-15 | LOC: M OUTALCOH 13:11 | PROVIDERS: ATTEND Psychiatry & Neurology Psychiatry | DX: F10.10 Alcohol abuse, uncomplicated (principal) ==

== ENCOUNTER 2020-12-23 12:50 | Emergency (ER) | payer BC, OTHER ==
[~2020-12-23] VITALS: Ht 170.2 cm; Wt 60.0 kg
[2020-12-23 12:51] VITALS: BP 177/85
[2020-12-23] MEDS ORDERED: NAPR-885 PO (13:06)
[2020-12-24] MEDS ORDERED: QUET200T54 PO (22:36)
== END 2020-12-23 16:43 | disposition home or self-care (01) ==
LOC: M ED 12:50
DX: F41.9 Anxiety disorder, unspecified (principal); Z73.3 Stress, not elsewhere classified; F20.9 Schizophrenia, unspecified; F79 Unspecified intellectual disabilities; Z79.899 Other long term (current) drug therapy

== ENCOUNTER 2020-12-24 20:20 | Inpatient (IN) | payer BC ==
[~2020-12-24] VITALS: Ht 170.2 cm; Wt 57.7 kg
[~2020-12-24 20:20] MED LIST changes: +NAPR-885 PO
[2020-12-24] MEDS ORDERED: OLANZapine ORAL DISINTEGRATING TAB 5MG PO ONE (21:00)
[2020-12-24 21:05] LABS: HEMOGLOBIN 14.3 g/dl (13.5-17.5); MEAN CORPUSCULAR HEMOGLOBIN 28.4 pg (27.0-33.0); MEAN CORPUSCULAR HGB CONC 32.5 g/dl (32.0-36.5); MEAN CORPUSCULAR VOLUME 87.5 fl (80.0-96.0); PLATELET COUNT, AUTOMATED 283 10^3/uL (150-450); RED BLOOD COUNT 5.03 10^6/uL (4.30-6.10); WHITE BLOOD COUNT 7.5 10^3/uL (4.0-10.0)
[2020-12-24 21:36] LABS: AMPHETAMINES LEVEL URINE NEGATIVE (NEGATIVE); BARBITURATES URINE NEGATIVE (NEGATIVE); BENZODIAZEPINES URINE NEGATIVE (NEGATIVE); CANNABINOIDS URINE NEGATIVE (NEGATIVE); COCAINE METABOLITE URINE NEGATIVE (NEGATIVE); METHADONE URINE NEGATIVE (NEGATIVE); OPIATES URINE NEGATIVE (NEGATIVE); PHENCYCLIDINE URINE NEGATIVE (NEGATIVE)
[2020-12-24 21:46] LABS: ACETAMINOPHEN LEVEL < 2.0 UG/ML (10.0-30.0); ALBUMIN 4.7 GM/DL (3.2-5.2); ALT/SGPT 23 U/L (12-78); BILIRUBIN,DIRECT 0.2 MG/DL (0.0-0.2); BILIRUBIN,TOTAL 0.5 MG/DL (0.2-1.0); BLOOD UREA NITROGEN 16 MG/DL (7-18); CALCIUM LEVEL 9.3 MG/DL (8.5-10.1); CARBON DIOXIDE LEVEL 29 MEQ/L (21-32); CHLORIDE LEVEL 107 MEQ/L (98-107); CREATININE FOR GFR 1.14 MG/DL (0.70-1.30); ETHYL ALCOHOL (ETHANOL) < 0.003 % (0.000-0.010); GLOMERULAR FILTRATION RATE > 60.0 (>60); GLUCOSE, FASTING 72 MG/DL (70-100); POTASSIUM SERUM 4.2 MEQ/L (3.5-5.1); SALICYLATE LEVEL < 1.7 MG/DL (5.0-30.0); SODIUM LEVEL 144 MEQ/L (136-145); TOTAL PROTEIN 7.3 GM/DL (6.4-8.2)
[2020-12-24] MEDS ORDERED: QUET200T54 PO (22:36)
[2020-12-25 00:10] LABS: RSV AMPLIFICATION NEGATIVE (NEGATIVE)
[2020-12-25] MEDS ORDERED: NICOTINE 21MG/24HR 1 EA TRANSDERMAL TD PRN (00:55)
[2020-12-25] MEDS ORDERED: ACETAMINOPHEN TAB 650MG DOSE (2X325MG) PO PRN (00:55)
[2020-12-25] MEDS ORDERED: traZODone 50 MG TAB PO PRN (00:55)
[2020-12-25] MEDS ORDERED: MOM 30ML SUSPENSION UDC PO PRN (00:55)
[2020-12-25] MEDS ORDERED: MAALOX 30 ML SUSP *UDC PO PRN (00:55)
[2020-12-25] MEDS ORDERED: QUEtiapine FUMARATE **XR** 200MG TABLET PO ONE (03:10)
[2020-12-25] MEDS: haloperidoL 5 MG TAB PO PRN (10:10)
[2020-12-25] MEDS: NICOTINE POLACRILEX 2 MG GUM PO PRN (14:06)
[2020-12-25] MEDS: LORazepam 2 MG TAB PO PRN ×2 (15:31→22:04)
[2020-12-25 16:34] VITALS: BP 133/80
--- NOTE | 2020-12-25 18:26 | HPEPDOC ---
[facility] Medical History & Physical History and Physical CHIEF COMPLAINT: Depression HISTORY OF PRESENT ILLNESS: 25-year-old male with no self reported medical history, presented to the ER with auditory hallucination and suicidal ideations. He is hearing voices telling him to kill other people. Hospitalist was consulted for medical intake. At this time, patient denies any seizures of breath, chest pain, palpitations, nausea, vomiting, fever, diarrhea or dysuria. Lab review and vital review revealed no acute abnormalities. PAST MEDICAL HISTORY: No past medical history reported PAST SURGICAL HISTORY: Past surgical history reported SOCIAL HISTORY: Patient denies smoking Patient denies etoh use Patient denies illicit drug use ALLERGIES: Please see below. REVIEW OF SYSTEMS: CONSTITUTIONAL: patient denies fevers, chills HEENT: patient denies blurred vision, loss of vision, headache,. CARDIOVASCULAR: patient denies chest pain, palpitations. RESPIRATORY: patient denies shortness of breath, cough, hemoptysis. GASTROINTESTINAL: patient denies abdominal pain, n/v/d, blood in stool. GENITOURINARY: patient denies dysuria, discharge. SKIN: patient denies rashes. MUSCULOSKELETAL: patient denies joint pain, neck pain. NEUROLOGICAL: patient denies focal weakness, numbness, seizures. PSYCHIATRIC: patient denies SI/HI. ENDOCRINE: patient denies polyuria, heat intolerance, cold intolerance. HEMATOLOGIC/LYMPHATIC: patient denies easy bruising. HOME MEDICATIONS: Please see below. PHYSICAL EXAMINATION: VITAL SIGNS: please see below General: NAD, comfortable HEENT: PERRLA, EOMI, sclerae clear Neck: supple, normal ROM, no JVD Respiratory: lungs CTAB, no wheeze, no rales, no crackles CVS: RRR, normal S1, S2, no murmurs Abdo: soft, no masses, no hepatosplenomegaly, BS+, no rebound tenderness Extremities: no edema, pulses 2+ MSK: no joint deformities, normal ROM Neuro: no focal neuro deficits, moving all 4 extremities, CN2-12 intact. Strength 5/5 in all 4 extremities. No nystagmus. Psych: calm, cooperative, AAO x 3 LABORATORY DATA: See below. MICROBIOLOGY: Please see below. ASSESSMENT: 5-year-old male with no self reported medical history, presented to the ER with auditory hallucination and suicidal ideations. He is hearing voices telling him to kill other people. Hospitalist was consulted for medical intake. At this time, patient denies any seizures of breath, chest pain, palpitations, nausea, vomiting, fever, diarrhea or dysuria. Lab review and vital review revealed no acute abnormalities. . PLAN: Homicidal ideation: Per psychiatry Vital Signs Vital Signs Date Time Temp Pulse Resp B/P (MAP) Pulse Ox O2 Delivery O2 Flow Rate FiO2 12/25/20 16:34 98.5 75 14 133/80 (97) 12/24/20 20:20 99 Room Air Laboratory Data Labs 24H Laboratory Tests 2 12/24/20 20:26: Urine Opiates Screen NEGATIVE, Urine Methadone Screen NEGATIVE, Urine Barbiturates Screen NEGATIVE, Urine Phencyclidine Screen NEGATIVE, Urine Amphetamines Screen NEGATIVE, Urine Benzodiazepines Screen NEGATIVE, Urine Cocaine Metabolite Screen NEGATIVE, Urine Cannabinoids Screen NEGATIVE 12/24/20 20:50: Nucleated Red Blood Cells % (auto) 0.0, Anion Gap 8, Glomerular Filtration Rate > 60.0, Calcium Level 9.3, Total Bilirubin 0.5, Direct Bilirubin 0.2, Aspartate Amino Transf (AST/SGOT) 12, Alanine Aminotransferase (ALT/SGPT) 23, Alkaline Quentin sphatase 61, Total Protein 7.3, Albumin 4.7, Albumin/Globulin Ratio 1.8, Thyroid Stimulating Hormone (TSH) 1.950, Salicylates Level < 1.7L, Acetaminophen Level < 2.0L, Ethyl Alcohol Level < 0.003 12/24/20 22:29: Coronavirus (COVID-19)(PCR) NEGATIVE, Influenza Type A (RT-PCR) NEGATIVE, Influenza Type B (RT-PCR) NEGATIVE, Respiratory Syncytial Virus (PCR) NEGATIVE CBC/BMP Laboratory Tests 12/24/20 20:50 Home Medications Scheduled Quetiapine Fumarate (Quetiapine Fumarate ER) 200 Mg Tab.er.24h, 200 MG PO QHS Scheduled PRN Naproxen (Naproxen) 500 Mg Tablet, 500 MG PO BID PRN for HEADACHES Allergies Coded Allergies: No Known Allergies (Verified , 06/28/17) PETE COMBS MD Dec 25, 2020 18:26
[2020-12-25] MEDS: QUEtiapine FUMARATE **XR** 200MG TABLET PO SCH (21:57)
[2020-12-26 06:01] VITALS: BP 117/63
--- NOTE | 2020-12-26 09:41 | MHHPEPDOC ---
General Date Of Admission: Dec 25, 2020 Legal Status: 9.39 Chief Complaint I was seeing things and hearing things my boss at work and his voice in the background ". History of Present Illness HISTORY OF THE PRESENT ILLNESS: Patient is a 25 -year-old , male, who [has 1 previous inpatient admission in 2018 and current follow-up at outpatient clinic. He was brought to the emergency room 2 days ago due to acutely disorganized agitated behavior. Patient apparently stopped taking his medicine for 2 weeks and has been decompensating with not sleeping pressured speech acting agitated and very labile and actively hallucinating. Patient after his admission was given Seroquel 200 at bedtime and has slept very well and is in better control and contact. Patient stated that he does not remember exactly how he ended up coming to the emergency room but does remember that he was hearing voices especially his boss at work and was also feeling dizzy and seeing things. He denies any more hallucination at this time reports feeling much better rested and appears alert and in no acute distress. He is denying any depression or suicidal thoughts but appears somewhat elevated and smiling inappropriately at times but not expressing any delusional ideas and no gross grandiose ideas.]. Psychiatric Review of Systems Depression (2 or more weeks): denies Mary Grace (4 or more days of): irritable/elevated mood, decreased need for sleep, talkativity, pressured Psychosis: auditory hallucination, visual hallucination PTSD: denies Anxiety: denies Past Psychiatric History Previous Psychiatric Diagnosis: . Bipolar disorder polysubstance abuse Previous Psychiatric Admissions: . Admission at [facility] 2017 Suicide Attempts: . Denies any suicidal attempt history Psychiatric Follow-up: . Attends outpatient clinic at [facility] Psychiatric medications: . Was taking Seroquel Past Medical History Medical Problems No major medical history Head Injury: No Seizures: No Hospitalizations: No Surgeries: No Family Medical/Psychiatric HX Medical Problems Noncontributory Psychiatric Disorders: Yes (His mother has diagnosis of bipolar disorder) Addiction: No Suicide Attemps/Completions: No Addiction History alcohol, cocaine Social History Childhood: . Born in [place] Abuse/Trauma:. Denies any history of abuse Current Living Situation: . Lives with his Education: . High school but in special class Employment: . Working in maintenance Social Support: . Legal: . No legal history no history of violence Marital: . to 2 weeks ago Mental Status Examination General Appearance: appears stated age Build: average Demeanor: average Eye Contact: average Activity: average Speech: clear, pressured, spontaneous, normal volume Mood: euthymic Mood Appears slightly euphoric but not overtly so and he denies any depressed mood Affect: full, appropriate, congruent Thought Process: logical/linear Thought Content (Delusions): none reported Thought Content (Other): none reported Thought Content (Aggressive): none reported Perception (Hallucinations): auditory, visual, other (Currently not hallucinating but he was experiencing that at the time of his discharge) Cognition (Impairment of): none reported Cognition(Intelligence Est.): average Oriented: Awake, Alert, Oriented times three Insight: fair Judgment: Fair Diagnoses Bipolar disorder A-FIB/CHADSVASC A-FIB History Current/History of A-Fib/PAF?: No Current PO Anticoag Therapy: No Age/Risk Factor Scoring CHADSVASC: CHADSVASC Response (Comments) Value Gender Risk Factor Male 0 Hx of CHF No 0 Hx of HTN No 0 Hx of Stroke/TIA/or VTE No 0 Hx of Diabetes No 0 Hx of Vascular Disease No 0 Total 0 Assessment Patient apparently had a manic episode with some psychotic symptoms and currently remains moderately elevated but denies any hallucination and no gross delusions. He needs further stabilization with his medication. Initial Treatment Plan 1. Patient was admitted on a [9.39] status. 2. Complete history was obtained. 3. With patients permission, family will be contacted and database will be expanded. 4. Patients medication regimen will be reviewed and changed accordingly. 5. Patient will be provided with protected environment. 6. Patient will be treated with individual, group, and milieu therapies. 7. Patient will receive supportive psych-education. 8. Discharge planning will commence immediately. 9. Outpatient follow-up treatment will be strongly recommended. 10. The initial treatment plan will focus initially on: * Depression. * Risk for suicide. ESTIMATED LENGTH OF STAY: 3-[5] DAYS. TIME SPENT COUNSELING AND COORDINATING INITIAL CARE: 45 minutes. Tobacco Cessation Screen If Patient is a Smoker Smoker Tobacco Cessation Tx Ordered?: Yes Complete/Results docum. Vital Signs Vital Signs Date Time Temp Pulse Resp B/P (MAP) Pulse Ox O2 Delivery O2 Flow Rate FiO2 12/26/20 06:01 98.8 62 18 117/63 (81) 98 Room Air Medications Scheduled Quetiapine Fumarate (Quetiapine Fumarate ER) 200 Mg Tab.er.24h, 200 MG PO QHS, (Reported) Scheduled PRN Naproxen (Naproxen) 500 Mg Tablet, 500 MG PO BID PRN for HEADACHES, (Reported) Allergies Coded Allergies: No Known Allergies (Verified , 06/28/17) JANET HEADLEY M.D. Dec 26, 2020 09:27
[2020-12-26] MEDS: haloperidoL 5 MG TAB PO PRN (09:58)
[2020-12-26] MEDS: NICOTINE POLACRILEX 2 MG GUM PO PRN ×3 (10:38→20:57)
[2020-12-26] MEDS: LORazepam 2 MG TAB PO PRN ×2 (11:21→20:01)
[2020-12-26] MEDS ORDERED: haloperidoL 5 MG TAB PO ONE (15:00)
[2020-12-26] MEDS ORDERED: LORazepam 2 MG TAB PO ONE (15:00)
[2020-12-26 18:42] VITALS: BP 160/95
[2020-12-26 18:43] VITALS: BP 130/74
[2020-12-26] MEDS: QUEtiapine FUMARATE **XR** 200MG TABLET PO SCH (20:01)
[2020-12-27 06:00] VITALS: BP 147/62
[2020-12-27] MEDS: LORazepam 2 MG TAB PO PRN ×2 (09:59→21:00)
[2020-12-27] MEDS: haloperidoL 5 MG TAB PO PRN ×2 (09:59→16:41)
[2020-12-27] MEDS: NICOTINE POLACRILEX 2 MG GUM PO PRN (09:59)
[2020-12-27] MEDS: NICOTINE 21MG/24HR 1 EA TRANSDERMAL TD SCH (12:30)
--- NOTE | 2020-12-27 16:12 | MHIPNPDOC ---
[facility] Progress Note Progress Note DATE OF SERVICE: 12/27/20 HISTORY:Patient is a 25 -year-old , Employed, Domiciled, , male, who has 1 previous inpatient admission in 2018 and current follow-up at outpatient clinic. He was brought to the emergency room 2 days ago due to acutely disorganized agitated behavior. Patient apparently stopped taking his medicine for 2 weeks and has been decompensating with not sleeping pressured speech acting agitated and very labile and actively hallucinating. Patient after his admission was given Seroquel 200 at bedtime and has slept very well and is in better control and contact. Patient stated that he does not remember exactly how he ended up coming to the emergency room but does remember that he was hearing voices especially his boss at work and was also feeling dizzy and seeing things. He denies any more hallucination at this time reports feeling much better rested and appears alert and in no acute distress. He is denying any depression or suicidal thoughts but appears somewhat elevated and smiling inappropriately at times but not expressing any delusional ideas and no gross grandiose ideas. VITAL SIGNS: See below. CURRENT MEDICATIONS: See below. MENTAL STATUS EXAMINATION: Patient is a 25 -year-old , Employed, Domiciled, , male, who as brought to the emergency room 2 days ago due to acutely disorganized agitated behavior Speech: Is slurred, slow rate, low tone and volume Language skills are intact Thought processes including: linear and goal oriented, although it appears that he has some intellectual delay Thought content: denies depression and anxiety. Denies suicidal/homicidal ideation, planning or intent. Abstract reasoning, and computation: fair Description of associations: denies, none observed Description of abnormal or psychotic thoughts: denies, none observed. Judgment: fair Insight: fair Orientation: alert and oriented to person, place, time and situation Recent and remote memory: intact Attention span and concentration: fair Language: limited Fund of knowledge: below average Mood: Depressed Mood Affect: Constricted DIAGNOSES: Bipolar 1 Disorder Intellectual Disability ASSESSMENT: Patient reports that he is not depressed or anxious. Denies that he is hearing voices. Denies and is not observed to be manic at this time. He denies and is not observed with abnormal psychotic symptoms, he is not paranoid and does not have flight of ideas. Patient is encouraged to attend groups and be social on the unit. He inquires about his discharge, reinforced that the patient would not be discharged today. He became quite upset stating that he has work in that he was told that he would be discharged today. He states that he became manic because he was stressed and had more stress on top of that, he came in with his mother and his due to dann. He states that he was on Seroquel 200 mg but he had not been taking it since March 2020. He reports that he had a DWI in November 2020, and stated "if I had been taken my medications I probably would not have had a DWI." It is unclear is to whether he has been noncompliant for short period of time versus not have been taking his medication since March of last year. According to staff patient continues to have some disorganized thinking MANAGEMENT PLAN: Continue all medications, discharge 1-2 days TIME SPENT: 25minutes. Vital Signs Vital Signs Date Time Temp Pulse Resp B/P (MAP) Pulse Ox O2 Delivery O2 Flow Rate FiO2 12/27/20 06:00 98.2 98 18 147/62 (90) 99 Room Air Current Medications Current Medications Medications (Trade) Dose Ordered Sig/Lorna Route PRN Reason Start Time Stop Time Status Last Admin Dose Admin Acetaminophen (Tylenol Tab) 650 mg Q6HP PRN PO HEADACHE or MILD DISCOMFORT 12/25/20 00:55 Al Hydrox/Mg Hydrox/Simethicone (Mylanta) 30 ml Q4HP PRN PO HEARTBURN/INDIGESTION 12/25/20 00:55 Haloperidol (Haldol) 5 mg Q6HP PRN PO ANXIETY/AGITATION 12/25/20 00:55 12/27/20 09:59 Home Med (Med Rec Complete!) ASDIRECTED XX 12/24/20 22:40 12/24/20 22:44 DC Lorazepam (Ativan) 2 mg Q6HP PRN PO ANXIETY/AGITATION 12/25/20 00:55 12/27/20 09:59 Magnesium Hydroxide (Milk Of Magnesia) 30 ml DAILYPRN PRN PO CONSTIPATION 12/25/20 00:55 Nicotine (Nicoderm Cq 21mg) 1 patch DAILY TD 12/27/20 11:20 12/27/20 12:30 Nicotine (Nicoderm Cq 21mg) 1 patch DAILY PRN TD NICOTINE WITHDRAWAL 12/25/20 00:55 12/25/20 13:22 DC 12/25/20 10:08 Nicotine (Nicorette) 2 mg Q4HP PRN PO NICOTINE WITHDRAWAL 12/25/20 13:20 12/27/20 11:22 DC 12/27/20 09:59 Quetiapine Fumarate (SEROquel XR) 200 mg QHS PO 12/25/20 21:00 12/26/20 20:01 Trazodone HCl (Desyrel) 50 mg QHSP PRN PO INSOMNIA 12/25/20 00:55 Allergies Coded Allergies: No Known Allergies (Verified , 06/28/17) BEENA PERERA NP Dec 27, 2020 16:12
[2020-12-27 17:19] VITALS: BP 126/81
[2020-12-27] MEDS: QUEtiapine FUMARATE **XR** 200MG TABLET PO SCH (21:00)
[2020-12-28 06:00] VITALS: BP 142/84
[2020-12-28] MEDS: LORazepam 2 MG TAB PO PRN (06:55)
[2020-12-28] MEDS ORDERED: NICO21PAT TD (09:14)
[2020-12-28] MEDS ORDERED: QUET200T54 PO (09:14)
[2020-12-28] MEDS: NICOTINE 21MG/24HR 1 EA TRANSDERMAL TD SCH (09:33)
--- NOTE | 2020-12-28 11:06 | MHDSPDOC ---
[facility] Discharge Summary Discharge Summary DATE OF ADMISSION: Dec 25, 2020 at 00:59 DATE OF DISCHARGE: December 28, 2020 at 1044 DISCHARGE DIAGNOSES: Bipolar 1 Disorder Intellectual Disability REASON FOR ADMISSION: Patient is a 25 -year-old , Employed, Domiciled, , male, who has 1 previous inpatient admission in 2018 and current follow-up at outpatient clinic. He was brought to the emergency room 2 days ago due to acutely disorganized agitated behavior. Patient apparently stopped taking his medicine for 2 weeks and has been decompensating with not sleeping pressured speech acting agitated and very labile and actively hallucinating. Patient after his admission was given Seroquel 200 at bedtime and has slept very well and is in better control and contact. Patient stated that he does not remember exactly how he ended up coming to the emergency room but does remember that he was hearing voices especially his boss at work and was also feeling dizzy and seeing things. He denies any more hallucination at this time reports feeling much better rested and appears alert and in no acute distress. He is denying any depression or suicidal thoughts but appears somewhat elevated and smiling inappropriately at times but not expressing any delusional ideas and no gross grandiose ideas. VITAL SIGNS: See below. CONSULTANTS INVOLVED: See Medical H + P by Hospitalist VITAL SIGNS: See below. TREATMENT AND PROGRESS ON THE UNIT: Patient was admitted to the [facility] on a 9.39 legal status he was afforded the following treatment modalities: 1) Individual Therapy 2) Group Therapy 3) Medication Management 4) Milieu Therapy 5) Safe Environment HOSPITAL COURSE: Patient was admitted to the hospital. Patient had stopped taking medications for bipolar disorder in March 2020. Patient was recently in November 2020. On patient's honeymoon patient consumed lots of alcohol. Patient says that he lost his hardship license for work due to poor decisions made. On patient assessment on December 27 no symptoms of dann were present -patient denies any hallucinations paranoia or abnormal psychotic symptoms. While at the hospital patient has been adherent to his medications. Patient has pretty good insight into his condition. He understands that when he does not take his medication his symptoms get worse. Patient says that when he leaves the hospital he plans to continue taking his medications as prescribed. Patient patient was reported by staff to be crying on December 27 because he missed his . There are no concerns of depression in this patient from that episode of crying. Patient on discharge interview was alert and oriented x3, reports that he is stable, and excited to go home. DISCHARGE ASSESSMENT: In today's interview, patient is alert and oriented, pts dress is appropriate. Hygiene and grooming is well-kempt. Smiles on approach and is pleasant and engaged in the interview. Denies depression and anxiety. Denies suicidal and homicidal ideation, planning or intent. Denies and is not observed with dann, psychotic symptoms of delusions, bizarre thinking, obsessions, paranoia, ruminations illogical thoughts, flight of ideas or having poor insight and judgement. Patient has normal mentation, declines further hospitalization on a voluntary status and meets criteria for discharge today. Patient encouraged to return to hospital if symptoms worsen or change and encouraged to call unit if he/she/they needs to speak to provider for questions regarding medications or care. MENTAL STATUS EXAMINATION ON DISCHARGE: Patient is a Patient is a 25 -year-old male, who is brought in by his family for manic behaviors, hallucinations, and paranoia. Speech is normal rate tone and volume. Patient does have a speech impediment from his intellectual disability. Language skills are intact at his baseline. Thought processes including: Linear and organized. Thought content: Denies depression anxiety suicidal and homicidal ideation. Abstract reasoning, and computation: Fair for this patient's cognitive and intellectual function. Description of associations: Denies any delusions and none were observed by staff. Description of abnormal or psychotic thoughts: Patient denies any thoughts and none were found by staff. Judgment: Fair based on his intellectual functioning. Insight: Fair based on his intellectual functioning. Orientation to alert and oriented x3. Recent and remote memory: Intact. Attention span and concentration: Normal at baseline. Language: Baseline for this patient. Fund of knowledge: Baseline for this. Mood: Euthymic mood noted. Affect: Euthymic affect. MEDICATIONS ON DISCHARGE: See medication list PLAN/FOLLOWUP ARRANGEMENTS: See discharge planners notes. The amount of time spent in the coordination of care for this patient was approximately 25 minutes. ETOH/Disorder Med Rx ETOH/DRUG DISORDER RX: Offrd @ d/c & pt refused Vital Signs/I&Os Vital Signs Date Time Temp Pulse Resp B/P (MAP) Pulse Ox O2 Delivery O2 Flow Rate FiO2 12/28/20 06:00 98.0 68 18 142/84 (103) 96 Room Air Medications Scheduled Nicotine (Nicotine Patch) 21 Mg Patch.td24, 1 PATCH TD DAILY for Nicotine Withdrawal, #7 Quetiapine Fumarate (Quetiapine Fumarate ER) 200 Mg Tab.er.24h, 200 MG PO QHS for Mood, #7 Scheduled PRN Naproxen (Naproxen) 500 Mg Tablet, 500 MG PO BID PRN for HEADACHES, (Reported) Allergies Coded Allergies: No Known Allergies (Verified , 06/28/17) BEENA PERERA NP Dec 28, 2020 11:06
== END 2020-12-28 11:53 | disposition home or self-care (01) | DRG 753 ==
LOC: M ED 20:20 → M PSY 12-25 00:59
PROVIDERS: ADMIT Psychiatry & Neurology Psychiatry; ATTEND Psychiatry & Neurology Psychiatry
DX: F31.9 Bipolar disorder, unspecified (principal); Z91.14 Patient's other noncompliance with medication regimen; F17.210 Nicotine dependence, cigarettes, uncomplicated; Z79.899 Other long term (current) drug therapy; R45.851 Suicidal ideations; Z20.822 Contact with and (suspected) exposure to COVID-19; F79 Unspecified intellectual disabilities

== ENCOUNTER 2021-01-03 16:15 | Inpatient (IN) | payer BC ==
[~2021-01-03] VITALS: Ht 170.2 cm; Wt 64.0 kg
[~2021-01-03 16:15] MED LIST changes: +NICO21PAT TD; +QUET200T54 PO
[2021-01-03 18:20] LABS: HEMATOCRIT 43.2 % (42.0-52.0); HEMOGLOBIN 13.9 g/dl (13.5-17.5); MEAN CORPUSCULAR HEMOGLOBIN 28.3 pg (27.0-33.0); MEAN CORPUSCULAR HGB CONC 32.2 g/dl (32.0-36.5); PLATELET COUNT, AUTOMATED 262 10^3/uL (150-450); RED BLOOD COUNT 4.91 10^6/uL (4.30-6.10); WHITE BLOOD COUNT 9.2 10^3/uL (4.0-10.0)
[2021-01-03 18:39] LABS: ACETAMINOPHEN LEVEL < 2.0 UG/ML (10.0-30.0); ALBUMIN 4.2 GM/DL (3.2-5.2); ALT/SGPT 23 U/L (12-78); BILIRUBIN,DIRECT 0.2 MG/DL (0.0-0.2); BILIRUBIN,TOTAL 0.7 MG/DL (0.2-1.0); BLOOD UREA NITROGEN 20 MG/DL (7-18); CALCIUM LEVEL 9.1 MG/DL (8.5-10.1); CARBON DIOXIDE LEVEL 28 MEQ/L (21-32); CHLORIDE LEVEL 108 MEQ/L (98-107); ETHYL ALCOHOL (ETHANOL) < 0.003 % (0.000-0.010); GLOMERULAR FILTRATION RATE > 60.0 (>60); GLUCOSE, FASTING 83 MG/DL (70-100); SALICYLATE LEVEL < 1.7 MG/DL (5.0-30.0); SODIUM LEVEL 143 MEQ/L (136-145); THYROID STIMULATING HORMONE 0.634 uIU/ML (0.358-3.740); TOTAL PROTEIN 7.1 GM/DL (6.4-8.2)
[2021-01-03 18:41] LABS: AMPHETAMINES LEVEL URINE NEGATIVE (NEGATIVE); BARBITURATES URINE NEGATIVE (NEGATIVE); BENZODIAZEPINES URINE NEGATIVE (NEGATIVE); CANNABINOIDS URINE NEGATIVE (NEGATIVE); COCAINE METABOLITE URINE NEGATIVE (NEGATIVE); METHADONE URINE NEGATIVE (NEGATIVE); OPIATES URINE NEGATIVE (NEGATIVE); PHENCYCLIDINE URINE NEGATIVE (NEGATIVE)
[2021-01-03] MEDS ORDERED: OLANZapine ORAL DISINTEGRATING TAB 5MG PO ONE (18:50)
[2021-01-03] MEDS ORDERED: NICOTINE 21MG/24HR 1 EA TRANSDERMAL TD ONE (20:25)
[2021-01-03] MEDS ORDERED: LORazepam 2 MG TAB PO STA (21:17)
[2021-01-03] MEDS ORDERED: haloperidoL 5 MG TAB PO ONE (21:20)
[2021-01-03] MEDS ORDERED: QUEtiapine FUMARATE 200 MG TAB PO ONE (21:20)
[2021-01-04] MEDS ORDERED: NICO21DI37 TD (08:30)
[2021-01-04] MEDS ORDERED: NAPR-885 PO (08:30)
[2021-01-04] MEDS ORDERED: QUET200T54 PO (08:30)
[2021-01-04 11:40] LABS: RSV AMPLIFICATION NEGATIVE (NEGATIVE)
[2021-01-04] MEDS ORDERED: NICOTINE 21MG/24HR 1 EA TRANSDERMAL TD ONE (13:10)
[2021-01-04] MEDS ORDERED: ACETAMINOPHEN TAB 650MG DOSE (2X325MG) PO PRN (16:40)
[2021-01-04] MEDS ORDERED: MAALOX 30 ML SUSP *UDC PO PRN (16:40)
[2021-01-04] MEDS ORDERED: MOM 30ML SUSPENSION UDC PO PRN (16:40)
[2021-01-04 20:50] VITALS: BP 141/94
[2021-01-04] MEDS ORDERED: QUEtiapine FUMARATE **XR** 200MG TABLET PO SCH (21:00)
[2021-01-04] MEDS: traZODone 50 MG TAB PO PRN (22:37)
[2021-01-04] MEDS: LORazepam 2 MG TAB PO PRN (22:38)
[2021-01-05 06:00] VITALS: BP 146/72
[2021-01-05] MEDS: haloperidoL 5 MG TAB PO PRN ×2 (08:18→17:45)
[2021-01-05] MEDS: LORazepam 2 MG TAB PO PRN ×2 (08:18→17:45)
[2021-01-05] MEDS: NAPROXEN 250 MG TAB PO PRN (08:18)
--- NOTE | 2021-01-05 10:17 | MHHPEPDOC ---
General Date Of Admission: Jan 04, 2021 Legal Status: 9.39 Chief Complaint I could not get medications I need ". History of Present Illness HISTORY OF THE PRESENT ILLNESS: Patient is a 25 -year-old , male, who [apparently has a history of bipolar disorder and has 2 recent inpatient stay for acute psychotic decompensation and discharged on December 28. Patient was brought back to emergency room after his reported that he was getting increasingly agitated and disorganized and not sleeping and called the crisis service. On admission patient stated that he could not get the medication he needs but does not know exactly what it was. Apparently he was asking for Haldol and Ativan which he received on inpatient unit as needed basis. Patient denies using any alcohol denies using any cocaine but is also very vague disorganized and unable to describe what the symptoms are that he needs those medications for. He is somewhat perplexed and gets easily confused and mumbling something about his prescriptions and outpatient appointment but in general he is not making much sense and appears quite disorganized and regressed.. When pressed for answers why he think he needs Haldol the patient stated that he was still hearing voices but not able to describe what the voices were saying and a lso seeing different things but also not able to describe. Psychiatric Review of Systems Depression (2 or more weeks): denies Mary Grace (4 or more days of): decreased need for sleep, flight of ideas, other ( reported agitated behavior) Psychosis: auditory hallucination, visual hallucination, other (Patient is not able to elaborate or describe the content) PTSD: denies Anxiety: denies Past Psychiatric History Previous Psychiatric Diagnosis: . Schizophrenia bipolar disorder and substance abuse Previous Psychiatric Admissions: . 2018 and 2 recent admission in 2020 Suicide Attempts: . No history of suicidal attempt Psychiatric Follow-up: . He is linked with outpatient clinic Psychiatric medications: . Taking Seroquel 200 mg at bedtime Past Medical History Medical Problems No major medical history Head Injury: No Seizures: No Hospitalizations: No Surgeries: No Family Medical/Psychiatric HX Psychiatric Disorders: Yes (Mother has bipolar disorder) Addiction: No Suicide Attemps/Completions: No Addiction History alcohol, cocaine (History of alcohol and cocaine abuse but denies any recent use in his tox screen is negative) Social History Childhood: . Was born in [place] Abuse/Trauma:. No history of abuse Current Living Situation: . Lives with his Education: . Special ed education Employment: . Unemployed Social Support: . Family Legal: . No legal history Marital: . Recently no children Mental Status Examination General Appearance: appears stated age Build: average Demeanor: average, preoccupied Eye Contact: avoidant Activity: average, anxious Speech: non-spontaneous Mood: anxious Mood Denies any serious depressed mood or manic mood but appears somewhat perplexed anxious Affect: constricted, anxious Thought Process: circumstantial, tangential, slow Thought Content (Delusions): denies SI, HI, AVH Thought Content (Other): preoccupied, unable to elaborate Thought Content (Aggressive): none reported Perception (Hallucinations): auditory, visual Perception (Other): none reported Cognition (Impairment of): none reported Cognition(Intelligence Est.): borderline Oriented: Awake, Alert, Oriented times three Insight: poor Judgment: Poor Diagnoses Bipolar disorder mixed rule out schizoaffective disorder A-FIB/CHADSVASC A-FIB History Current/History of A-Fib/PAF?: No Current PO Anticoag Therapy: No Age/Risk Factor Scoring CHADSVASC: CHADSVASC Response (Comments) Value Age Risk Factor Age < 65 years old 0 Gender Risk Factor Male 0 Hx of CHF No 0 Hx of HTN No 0 Hx of Stroke/TIA/or VTE No 0 Hx of Diabetes No 0 Hx of Vascular Disease No 0 Total 0 Treatment Treatment ordered: NONE Assessment Significantly disorganized and patient is reporting auditory and visual hallucinations without being able to elaborate. There is some possibility that this could be a med seeking behavior but patient presents with more disorganized thinking and complaining of a hallucination and strong history of bipolar disorder and clearly in need of the stabilization Initial Treatment Plan 1. Patient was admitted on a status. 2. Complete history was obtained. 3. With patients permission, family will be contacted and database will be expanded. 4. Patients medication regimen will be reviewed and changed accordingly. 5. Patient will be provided with protected environment. 6. Patient will be treated with individual, group, and milieu therapies. 7. Patient will receive supportive psych-education. 8. Discharge planning will commence immediately. 9. Outpatient follow-up treatment will be strongly recommended. 10. The initial treatment plan will focus initially on: * Depression. * Risk for suicide. ESTIMATED LENGTH OF STAY: 5-7 DAYS. TIME SPENT COUNSELING AND COORDINATING INITIAL CARE: 40 minutes. Tobacco Cessation Screen If Patient is a Smoker Occasional smoker and does not want any smoke cessation treatment Complete/Results docum. Vital Signs Vital Signs Date Time Temp Pulse Resp B/P (MAP) Pulse Ox O2 Delivery O2 Flow Rate FiO2 01/05/21 06:00 97.4 88 20 146/72 (96) 99 01/04/21 22:09 Room Air Laboratory Data 24H Labs Laboratory Tests 2 01/04/21 10:45: Coronavirus (COVID-19)(PCR) NEGATIVE, Influenza Type A (RT-PCR) NEGATIVE, Influenza Type B (RT-PCR) NEGATIVE, Respiratory Syncytial Virus (PCR) NEGATIVE Medications Scheduled Nicotine (Nicotine Patch) 21 Mg Patch.td24, 21 MG TD DAILY, (Reported) WAS APPLIED TO LEFT DELTOID Quetiapine Fumarate (Quetiapine Fumarate ER) 200 Mg Tab.er.24h, 200 MG PO QHS, (Reported) Scheduled PRN Naproxen (Naproxen) 500 Mg Tablet, 500 MG PO BID PRN for PAIN LEVEL 1-5, (Reported) Allergies Coded Allergies: No Known Allergies (Verified , 06/28/17) JANET HEADLEY M.D. Jan 05, 2021 10:17
[2021-01-05] MEDS: DIVALPROEX 250MG *ER* TAB PO SCH ×2 (10:40→20:31)
[2021-01-05 17:09] VITALS: BP 141/83
[2021-01-05] MEDS: QUEtiapine FUMARATE 100 MG TAB PO SCH (20:31)
[2021-01-05] MEDS ORDERED: QUEtiapine FUMARATE 100 MG TAB PO ONE (21:00)
[2021-01-06] MEDS: LORazepam 2 MG TAB PO PRN (06:47)
[2021-01-06 06:51] VITALS: BP 154/57
[2021-01-06] MEDS: NICOTINE 21MG/24HR 1 EA TRANSDERMAL TD PRN (06:54)
--- NOTE | 2021-01-06 08:07 | CR ---
CONSULTATION DATE: 01/05/2021 at 6 p.m. REASON FOR CONSULTATION: Medical evaluation of inpatient psychiatric recipient. PHYSICIAN REQUESTING CONSULTATION: Dr. Travon Carvajal HISTORY OF PRESENT ILLNESS: Mr. Leblanc is a 25-year-old gentleman who has history of tobacco abuse, bipolar disorder. He is hospitalized for his third visit to inpatient psych for acute psychotic decompensation. We are asked to see the patient in medical consultation. PAST MEDICAL HISTORY: His past medical history is notable for tobacco abuse as well as schizophrenia, bipolar disorder with substance abuse. He has history of facial abscess requiring incision and drainage (I and D) and drain placement. PAST SURGICAL HISTORY: His past surgical history is notable for left groin hernia repair. FAMILY HISTORY: Family history is notable for lung cancer as well as diabetes. SOCIAL HISTORY: The patient is and lives at home with his . He is currently on disability and does not work. He occasionally smokes cigarettes; denies any alcohol or illegal drug use. He previously was using cocaine. ALLERGIES: MEDICATIONS: Medications have been reviewed by me in the electronic record; please see electronic record for details. REVIEW OF SYSTEMS: Review of systems and social systems reviewed with the patient otherwise negative except what is mentioned in the history of present illness (HPI). Regarding his psychiatric symptoms, please reference the psychiatrist's note. PHYSICAL EXAMINATION: On exam, the patient's temperature is 98.5, heart rate 69, respirations 16, blood pressure 141/82; O2 saturation is 99% on room air. In general, the patient is alert and oriented times 3. He appears to be depressed. His skin is intact and warm to touch. He has some tattoos on his upper extremities. Head is atraumatic and normocephalic. His pupils are symmetric and react to light. Oropharynx is clear. He has poor dentition. Neck supple. Lung sounds present without rales, wheezing or rhonchi. Heart: S1, S2; no murmurs, rubs or gallops. Abdomen is soft, nontender, nondistended with active bowel sounds. Extremities without any cyanosis, clubbing or edema. RELEVANT LABS: White count is 9.2, hemoglobin 13.0, hematocrit 43.2, platelet count 262,000. Sodium 142, potassium 4, chloride 28, BUN 20, creatinine is 1, glucose 83. AST is 19, ALT is 23, alkaline phosphatase 60, total bilirubin 0.7. TSH is 0.534. IMPRESSION: 1. History of bipolar disorder. 2. Tobacco abuse. 3. Mild transient hypertension, likely related to stress. RECOMMENDATIONS: May proceed with ongoing inpatient psychiatric evaluation and treatment. Would monitor blood pressure. If it remains high, please notify us so that we can start the patient on oral medication. The patient should receive a nicotine patch while he is hospitalized. Thank you for allowing us to participate in the care of this patient. We will sign off now. Please call with any questions.
--- NOTE | 2021-01-06 09:10 | MHIPNPDOC ---
[facility] Progress Note Progress Note DATE OF SERVICE: 01/06/21 Claims he is feeling better after taking increase the Seroquel and Depakote. He reports no side effect and slept well. He is very evasive and again unable to elaborate why he came to the hospital. Yesterday he was claiming that he was hearing voices and seeing things but today he is not so sure and not able to describe hallucinations in detail. He appears preoccupied evasive but not agitated and denies any suicidal thoughts. HISTORY:. VITAL SIGNS: See below. NEW TEST RESULTS:. CURRENT MEDICATIONS: See below. MENTAL STATUS EXAMINATION: Patient is a 25-year old male, who is in control. Speech: Is relevant but not productive. Language skills are poor. Thought processes including: Again not productive and not spontaneous. Thought content: Unable to elaborate on his complain of the hallucinations]. Abstract reasoning, and computation: Poor. Description of associations: Not organized. Description of abnormal or psychotic thoughts: Superficially denies any problems today.. Insight: Poor. Orientation: [Oriented . Recent and remote memory: No gross impairment. Attention span and concentration: Poor. Language:. Fund of knowledge:. Mood: Anxious depressed. Affect: Blunted the perplexed. DIAGNOSES: 1.. Bipolar disorder mixed 2.. Rule out schizoaffective disorder 3.. ASSESSMENT: Behavior is in control but mental status remains a somewhat disorganized MANAGEMENT PLAN: Continue with the Seroquel and titrate Depakote. TIME SPENT: 20 minutes. Vital Signs Vital Signs Date Time Temp Pulse Resp B/P (MAP) Pulse Ox O2 Delivery O2 Flow Rate FiO2 01/06/21 06:51 98.3 60 20 154/57 (89) 97 Room Air Current Medications Current Medications Medications (Trade) Dose Ordered Sig/Lorna Route PRN Reason Start Time Stop Time Status Last Admin Dose Admin Acetaminophen (Tylenol Tab) 650 mg Q6HP PRN PO HEADACHE or MILD DISCOMFORT 01/04/21 16:40 Al Hydrox/Mg Hydrox/Simethicone (Mylanta) 30 ml Q4HP PRN PO HEARTBURN/INDIGESTION 01/04/21 16:40 Divalproex Sodium (Depakote Er) 250 mg BID PO 01/05/21 09:00 01/05/21 20:31 Haloperidol (Haldol) 5 mg Q6HP PRN PO AGITATION 01/04/21 21:45 01/05/21 17:45 Home Med (Med Rec Complete!) ASDIRECTED XX 01/04/21 08:30 01/04/21 08:31 DC Lorazepam (Ativan) 2 mg Q6HP PRN PO ANXIETY/AGITATION 01/04/21 21:45 01/06/21 06:47 Lorazepam (Ativan) 2 mg STAT STAT PO 01/03/21 21:17 01/03/21 21:21 DC 01/03/21 21:25 Magnesium Hydroxide (Milk Of Magnesia) 30 ml DAILYPRN PRN PO CONSTIPATION 01/04/21 16:40 Naproxen (Naprosyn) 500 mg BID PRN PO PAIN LEVEL 1-5 01/04/21 21:45 01/05/21 08:18 Nicotine (Nicoderm Cq 21mg) 1 patch DAILY PRN TD nicotine withdrawal 01/04/21 21:45 01/06/21 06:54 Quetiapine Fumarate (SEROquel XR) 200 mg QHS PO 01/04/21 21:00 01/05/21 10:02 DC 01/04/21 22:28 Quetiapine Fumarate (SEROquel) 300 mg QHS PO 01/05/21 21:00 01/05/21 20:31 Trazodone HCl (Desyrel) 50 mg QHSP PRN PO INSOMNIA 01/04/21 16:40 01/04/21 22:37 Allergies Coded Allergies: No Known Allergies (Verified , 06/28/17) JANET HEADLEY M.D. Jan 06, 2021 09:10
[2021-01-06] MEDS: DIVALPROEX 250MG *ER* TAB PO SCH ×2 (09:44→20:38)
[2021-01-06 18:00] VITALS: BP 123/88
[2021-01-06] MEDS: QUEtiapine FUMARATE 100 MG TAB PO SCH (20:38)
[2021-01-06] MEDS: traZODone 50 MG TAB PO PRN (21:19)
[2021-01-07 06:18] VITALS: BP 123/82
[2021-01-07] MEDS: LORazepam 2 MG TAB PO PRN ×2 (07:45→15:01)
[2021-01-07] MEDS: DIVALPROEX 250MG *ER* TAB PO SCH (08:00)
[2021-01-07] MEDS: NICOTINE 21MG/24HR 1 EA TRANSDERMAL TD PRN (08:01)
--- NOTE | 2021-01-07 09:06 | MHIPNPDOC ---
[facility] Progress Note Progress Note DATE OF SERVICE: 01/07/21 The patient is fully cooperated with his medication of increased the Seroquel and Depakote. He has no complaint of side effect but claims that he is feeling great and wonderful. He is very superficial but also very pressured and dramatic claiming that he misses his and anxious to go home. He did indicate that he was using his prescribed the Seroquel as needed basis at home so it is highly likely that he was not complying with medications after discharge. He remains quite labile pressured and somewhat flighty at elevated but behavior is in control so far. Will increase his Depakote check his blood level in about 3 days and titrate. HISTORY:. VITAL SIGNS: See below. NEW TEST RESULTS:. CURRENT MEDICATIONS: See below. MENTAL STATUS EXAMINATION: Patient is a 25-year old male, who is very superficial and pressured but in control. Speech: Is pressured. Language skills are fair. Thought processes including: Relevant but not spontaneous. Thought content: Superficially denies any problem]. Abstract reasoning, and computation: Poor. Description of associations: Is relevant. Description of abnormal or psychotic thoughts: Patient is denying any problems but was very disorganized and labile. Judgment: Poor. Insight: Poor. Orientation: He is oriented. Recent and remote memory: Fair. Attention span and concentration: Poor. Language:. Fund of knowledge:. Mood: Claims he is feeling great but very superficial. Affect: Somewhat labile. DIAGNOSES: 1.. Bipolar disorder mixed 2.. Rule out schizoaffective disorder 3.. ASSESSMENT: No significant improvement MANAGEMENT PLAN: Increase Depakote continue with the Seroquel and supportive therapy. TIME SPENT: 20 minutes. Vital Signs Vital Signs Date Time Temp Pulse Resp B/P (MAP) Pulse Ox O2 Delivery O2 Flow Rate FiO2 01/07/21 06:18 98.0 85 14 123/82 (96) 98 Room Air Current Medications Current Medications Medications (Trade) Dose Ordered Sig/Lorna Route PRN Reason Start Time Stop Time Status Last Admin Dose Admin Acetaminophen (Tylenol Tab) 650 mg Q6HP PRN PO HEADACHE or MILD DISCOMFORT 01/04/21 16:40 Al Hydrox/Mg Hydrox/Simethicone (Mylanta) 30 ml Q4HP PRN PO HEARTBURN/INDIGESTION 01/04/21 16:40 Divalproex Sodium (Depakote Er) 250 mg BID PO 01/05/21 09:00 01/07/21 08:00 Haloperidol (Haldol) 5 mg Q6HP PRN PO AGITATION 01/04/21 21:45 01/05/21 17:45 Home Med (Med Rec Complete!) ASDIRECTED XX 01/04/21 08:30 01/04/21 08:31 DC Lorazepam (Ativan) 2 mg Q6HP PRN PO ANXIETY/AGITATION 01/04/21 21:45 01/07/21 07:45 Lorazepam (Ativan) 2 mg STAT STAT PO 01/03/21 21:17 01/03/21 21:21 DC 01/03/21 21:25 Magnesium Hydroxide (Milk Of Magnesia) 30 ml DAILYPRN PRN PO CONSTIPATION 01/04/21 16:40 Naproxen (Naprosyn) 500 mg BID PRN PO PAIN LEVEL 1-5 01/04/21 21:45 01/05/21 08:18 Nicotine (Nicoderm Cq 21mg) 1 patch DAILY PRN TD nicotine withdrawal 01/04/21 21:45 01/07/21 08:01 Quetiapine Fumarate (SEROquel XR) 200 mg QHS PO 01/04/21 21:00 01/05/21 10:02 DC 01/04/21 22:28 Quetiapine Fumarate (SEROquel) 300 mg QHS PO 01/05/21 21:00 01/06/21 20:38 Trazodone HCl (Desyrel) 50 mg QHSP PRN PO INSOMNIA 01/04/21 16:40 01/06/21 21:19 Allergies Coded Allergies: No Known Allergies (Verified , 06/28/17) JANET HEADLEY M.D. Jan 07, 2021 09:05
[2021-01-07 18:00] VITALS: BP 126/88
[2021-01-07] MEDS: haloperidoL 5 MG TAB PO PRN (20:08)
[2021-01-07] MEDS: DIVALPROEX 500MG *ER* TAB PO SCH (20:08)
[2021-01-07] MEDS: QUEtiapine FUMARATE 100 MG TAB PO SCH (20:08)
[2021-01-08 05:30] VITALS: BP 119/66
[2021-01-08] MEDS: LORazepam 2 MG TAB PO PRN ×2 (07:58→14:42)
[2021-01-08] MEDS: DIVALPROEX 250MG *ER* TAB PO SCH (07:59)
[2021-01-08] MEDS: haloperidoL 5 MG TAB PO PRN ×2 (07:59→14:42)
[2021-01-08] MEDS: NICOTINE 21MG/24HR 1 EA TRANSDERMAL TD PRN (08:59)
--- NOTE | 2021-01-08 16:11 | MHIPN ---
[facility] PROGRESS NOTE DATE: 01/08/2021 VITAL SIGNS: Blood pressure 119/66, pulse 56, temperature 97.8. This is a video assessment. He is in the inpatient unit. He is seen in the presence of staff. I am at home. CHIEF COMPLAINT: Feels better. SUBJECTIVE: Seen for followup. Indicates feels better and that feels more rested. Says has had good sleep. Says moods are good. Appetite is okay. MENTAL STATUS EXAMINATION: Neat, cooperative. No agitation. No psychomotor retardation. Affect fairly broad. Denies thoughts of harming himself or anyone else. No overt delusions elicited but has been somewhat grandiose per staff and with observations. Judgment and insight are compromised, though possibly a bit improved. ASSESSMENT: 1. Bipolar disorder, mixed episode. 2. Rule out schizoaffective disorder. PLAN: Continue current care, observations. The Depakote is to continue, recently increased, a total of 750 mg a day, quetiapine at 300 mg at night. Further recommendations to be made depending on the clinical picture.
[2021-01-08 16:28] VITALS: BP 113/73
[2021-01-08] MEDS: traZODone 50 MG TAB PO PRN (20:00)
[2021-01-08] MEDS: DIVALPROEX 500MG *ER* TAB PO SCH (20:00)
[2021-01-08] MEDS: QUEtiapine FUMARATE 100 MG TAB PO SCH (20:01)
[2021-01-09 06:25] VITALS: BP 119/73
[2021-01-09] MEDS: DIVALPROEX 250MG *ER* TAB PO SCH (08:14)
[2021-01-09] MEDS: NICOTINE 21MG/24HR 1 EA TRANSDERMAL TD PRN (08:14)
[2021-01-09] MEDS: haloperidoL 5 MG TAB PO PRN (10:14)
[2021-01-09] MEDS: LORazepam 2 MG TAB PO PRN (12:25)
[2021-01-09 15:36] VITALS: BP 132/58
[2021-01-09] MEDS: DIVALPROEX 500MG *ER* TAB PO SCH (21:25)
[2021-01-09] MEDS: QUEtiapine FUMARATE 100 MG TAB PO SCH (21:25)
[2021-01-09] MEDS: traZODone 50 MG TAB PO PRN (21:26)
[2021-01-10 06:28] VITALS: BP 114/76
[2021-01-10] MEDS: DIVALPROEX 250MG *ER* TAB PO SCH (08:07)
--- NOTE | 2021-01-10 09:03 | MHIPNPDOC ---
[facility] Progress Note Progress Note DATE OF SERVICE: 01/10/21 The patient is fully cooperating with Seroquel and Depakote and reports that he is feeling better. He is still very evasive and unable to elaborate how he is feeling different but appears not as anxious or pressured and is in much better control. His speech is better organized and able to focus on the topic although not very productive and not spontaneous. He is denying any side effect and has no physical complaints and is in no acute distress. We will get blood work for CMP and valproic acid level tomorrow morning and titrate. HISTORY:. VITAL SIGNS: See below. NEW TEST RESULTS:. CURRENT MEDICATIONS: See below. MENTAL STATUS EXAMINATION: Patient is a 25-year old male, who is in no acute distress. Speech: Is relevant and coherent. Language skills are fair. Thought processes including: Relevant. Thought content: Denies any problem. Abstract reasoning, and computation: Poor. Description of associations: Better organized. Description of abnormal or psychotic thoughts: Superficially denies any. Judgment: Poor. Insight: Fair]. Orientation: Oriented. Recent and remote memory: Unimpaired. Attention span and concentration: Fair. Language:. Fund of knowledge:. Mood: Reports feeling better and not as anxious. Affect: Blunted but appropriate. DIAGNOSES: 1.. Bipolar disorder manic 2.. Rule out schizoaffective disorder 3.. ASSESSMENT: Showing slight improvement MANAGEMENT PLAN: Continue with the current medicine and get blood work for titration. TIME SPENT: 20 minutes. Vital Signs Vital Signs Date Time Temp Pulse Resp B/P (MAP) Pulse Ox O2 Delivery O2 Flow Rate FiO2 01/10/21 06:28 97.2 94 16 114/76 (89) 98 Room Air Current Medications Current Medications Medications (Trade) Dose Ordered Sig/Lorna Route PRN Reason Start Time Stop Time Status Last Admin Dose Admin Acetaminophen (Tylenol Tab) 650 mg Q6HP PRN PO HEADACHE or MILD DISCOMFORT 01/04/21 16:40 Al Hydrox/Mg Hydrox/Simethicone (Mylanta) 30 ml Q4HP PRN PO HEARTBURN/INDIGESTION 01/04/21 16:40 Divalproex Sodium (Depakote Er) 250 mg BID PO 01/05/21 09:00 01/07/21 09:00 DC 01/07/21 08:00 Divalproex Sodium (Depakote Er) 250 mg DAILY PO 01/08/21 09:00 01/10/21 08:07 Divalproex Sodium (Depakote Er) 500 mg QHS PO 01/07/21 21:00 01/09/21 21:25 Haloperidol (Haldol) 5 mg Q6HP PRN PO AGITATION 01/04/21 21:45 01/09/21 10:14 Home Med (Med Rec Complete!) ASDIRECTED XX 01/04/21 08:30 01/04/21 08:31 DC Lorazepam (Ativan) 2 mg Q6HP PRN PO ANXIETY/AGITATION 01/04/21 21:45 01/09/21 12:25 Lorazepam (Ativan) 2 mg STAT STAT PO 01/03/21 21:17 01/03/21 21:21 DC 01/03/21 21:25 Magnesium Hydroxide (Milk Of Magnesia) 30 ml DAILYPRN PRN PO CONSTIPATION 01/04/21 16:40 Naproxen (Naprosyn) 500 mg BID PRN PO PAIN LEVEL 1-5 01/04/21 21:45 01/05/21 08:18 Nicotine (Nicoderm Cq 21mg) 1 patch DAILY PRN TD nicotine withdrawal 01/04/21 21:45 01/09/21 08:14 Quetiapine Fumarate (SEROquel XR) 200 mg QHS PO 01/04/21 21:00 01/05/21 10:02 DC 01/04/21 22:28 Quetiapine Fumarate (SEROquel) 300 mg QHS PO 01/05/21 21:00 01/09/21 21:25 Trazodone HCl (Desyrel) 50 mg QHSP PRN PO INSOMNIA 01/04/21 16:40 01/09/21 21:26 Allergies Coded Allergies: No Known Allergies (Verified , 06/28/17) JANET HEADLEY M.D. Jan 10, 2021 09:03
[2021-01-10] MEDS: NAPROXEN 250 MG TAB PO PRN (14:40)
[2021-01-10] MEDS: NICOTINE 21MG/24HR 1 EA TRANSDERMAL TD PRN (16:00)
[2021-01-10 19:02] VITALS: BP 129/87
[2021-01-10] MEDS: QUEtiapine FUMARATE 100 MG TAB PO SCH (21:39)
[2021-01-10] MEDS: DIVALPROEX 500MG *ER* TAB PO SCH (21:39)
[2021-01-11 07:16] VITALS: BP 134/70
[2021-01-11 07:21] LABS: ALBUMIN 3.9 GM/DL (3.2-5.2); ALT/SGPT 18 U/L (12-78); BILIRUBIN,TOTAL 0.5 MG/DL (0.2-1.0); BLOOD UREA NITROGEN 16 MG/DL (7-18); CALCIUM LEVEL 9.3 MG/DL (8.5-10.1); CARBON DIOXIDE LEVEL 33 MEQ/L (21-32); CHLORIDE LEVEL 106 MEQ/L (98-107); CREATININE FOR GFR 1.18 MG/DL (0.70-1.30); GLOMERULAR FILTRATION RATE > 60.0 (>60); GLUCOSE, FASTING 88 MG/DL (70-100); POTASSIUM SERUM 4.6 MEQ/L (3.5-5.1); SODIUM LEVEL 141 MEQ/L (136-145); TOTAL PROTEIN 6.6 GM/DL (6.4-8.2); VALPROIC ACID (DEPAKOTE) 61.6 UG/ML (50.0-100.0)
[2021-01-11] MEDS: NICOTINE 21MG/24HR 1 EA TRANSDERMAL TD PRN (08:00)
[2021-01-11] MEDS: DIVALPROEX 250MG *ER* TAB PO SCH (08:00)
--- NOTE | 2021-01-11 11:01 | MHIPNPDOC ---
[facility] Progress Note Progress Note DATE OF SERVICE: 01/11/21 Patient is fully cooperating with the medicine and tolerating without any side effect. His a CMP is entirely within normal limit and Depakote level is 61.6 which is in therapeutic range. Patient is still very superficial and evasive and claims everything is wonderful and he just wants to go home. He is however is much less flighty and not appearing as pressured or disorganized and his behavior has been in good control. He slept well and eating well and has no physical complaints. Is also admitting to not being fully compliant with his medications and is willing to comply as prescribed and seems to have a little better insight. HISTORY:. VITAL SIGNS: See below. NEW TEST RESULTS:. CURRENT MEDICATIONS: See below. MENTAL STATUS EXAMINATION: Patient is a 25-year old male, who is cooperating. Speech: Is is better organized and rational. Language skills are fair. Thought processes including: Relevant and coherent. Thought content: Denies any problem. Abstract reasoning, and computation: Poor. Description of associations: Better organized. Description of abnormal or psychotic thoughts: Denies any hallucination. Judgment: Fair. Insight: Poor. Orientation: Appears oriented. Recent and remote memory: No gross impairment. Attention span and concentration:. Language:. Fund of knowledge:. Mood: Mildly anxious but denies any serious depression. Affect: Appears more appropriate. DIAGNOSES: 1.. Bipolar disorder 2.. Rule out schizoaffective disorder 3.. ASSESSMENT: Cooperating with the treatment and showing slight improvement MANAGEMENT PLAN: Continue with the current treatment. TIME SPENT: Minutes. Vital Signs Vital Signs Date Time Temp Pulse Resp B/P (MAP) Pulse Ox O2 Delivery O2 Flow Rate FiO2 01/11/21 07:16 97.4 95 20 134/70 (91) 98 Room Air Laboratory Data 24H Labs Laboratory Tests 2 01/11/21 06:46: Anion Gap 2L, Glomerular Filtration Rate > 60.0, Calcium Level 9.3, Total Bilirubin 0.5, Aspartate Amino Transf (AST/SGOT) 10, Alanine Aminotransferase (ALT/SGPT) 18, Alkaline Phosphatase 55, Total Protein 6.6, Albumin 3.9, Albumin/Globulin Ratio 1.4, Valproic Acid (Depakene) Level 61.6 CBC/BMP Laboratory Tests 01/11/21 06:46 Current Medications Current Medications Medications (Trade) Dose Ordered Sig/Lorna Route PRN Reason Start Time Stop Time Status Last Admin Dose Admin Acetaminophen (Tylenol Tab) 650 mg Q6HP PRN PO HEADACHE or MILD DISCOMFORT 01/04/21 16:40 Al Hydrox/Mg Hydrox/Simethicone (Mylanta) 30 ml Q4HP PRN PO HEARTBURN/INDIGESTION 01/04/21 16:40 Divalproex Sodium (Depakote Er) 250 mg BID PO 01/05/21 09:00 01/07/21 09:00 DC 01/07/21 08:00 Divalproex Sodium (Depakote Er) 250 mg DAILY PO 01/08/21 09:00 01/11/21 08:00 Divalproex Sodium (Depakote Er) 500 mg QHS PO 01/07/21 21:00 01/10/21 21:39 Haloperidol (Haldol) 5 mg Q6HP PRN PO AGITATION 01/04/21 21:45 01/09/21 10:14 Home Med (Med Rec Complete!) ASDIRECTED XX 01/04/21 08:30 01/04/21 08:31 DC Lorazepam (Ativan) 2 mg Q6HP PRN PO ANXIETY/AGITATION 01/04/21 21:45 01/09/21 12:25 Lorazepam (Ativan) 2 mg STAT STAT PO 01/03/21 21:17 01/03/21 21:21 DC 01/03/21 21:25 Magnesium Hydroxide (Milk Of Magnesia) 30 ml DAILYPRN PRN PO CONSTIPATION 01/04/21 16:40 Miscellaneous (Unresolved Clarification Entry) SEE LABEL COMMENTS DAILY XX 01/11/21 09:00 Naproxen (Naprosyn) 500 mg BID PRN PO PAIN LEVEL 1-5 01/04/21 21:45 01/10/21 14:40 Nicotine (Nicoderm Cq 21mg) 1 patch DAILY PRN TD nicotine withdrawal 01/04/21 21:45 01/11/21 08:00 Quetiapine Fumarate (SEROquel XR) 200 mg QHS PO 01/04/21 21:00 01/05/21 10:02 DC 01/04/21 22:28 Quetiapine Fumarate (SEROquel) 300 mg QHS PO 01/05/21 21:00 01/10/21 21:39 Trazodone HCl (Desyrel) 50 mg QHSP PRN PO INSOMNIA 01/04/21 16:40 01/09/21 21:26 Allergies Coded Allergies: No Known Allergies (Verified , 06/28/17) JANET HEADLEY M.D. Jan 11, 2021 11:01
[2021-01-11 18:01] VITALS: BP 126/80
[2021-01-11] MEDS: QUEtiapine FUMARATE 100 MG TAB PO SCH (20:03)
[2021-01-11] MEDS: DIVALPROEX 500MG *ER* TAB PO SCH (20:03)
[2021-01-11] MEDS: NAPROXEN 250 MG TAB PO PRN (20:04)
[2021-01-12 06:46] VITALS: BP 112/55
[2021-01-12] MEDS: DIVALPROEX 250MG *ER* TAB PO SCH (08:27)
[2021-01-12] MEDS: NICOTINE 21MG/24HR 1 EA TRANSDERMAL TD PRN (08:27)
--- NOTE | 2021-01-12 09:30 | MHIPNPDOC ---
[facility] Progress Note Progress Note DATE OF SERVICE: 01/12/21 The patient is fully cooperating with the medicine and is showing moderately improved mental status. His behavior is in control although h e is very much demanding and attention seeking sometimes. This morning he reports that he is doing okay but feeling very frustrated for being in hospital and is very anxious to go home [place]. He is showing no bizarre or agitated behavior and strongly denies any hallucination or paranoia but still showing very little insight. HISTORY:. VITAL SIGNS: See below. NEW TEST RESULTS:. CURRENT MEDICATIONS: See below. MENTAL STATUS EXAMINATION: Patient is a 25-year old male, who is in no acute distress. Speech: Is relevant. Language skills are fair. Thought processes including: Not very productive. Thought content: Superficially denies any problem. Abstract reasoning, and computation: Poor. Description of associations: Organized. Description of abnormal or psychotic thoughts: Denies any hallucination or paranoia. Judgment: Poor. Insight: Poor. Orientation: Oriented. Recent and remote memory: Fair. Attention span and concentration: Poor. Language:. Fund of knowledge:. Mood: Moderately anxious and irritable. Affect: Labile. DIAGNOSES: 1.. Bipolar disorder 2.. Rule out schizoaffective disorder 3.. ASSESSMENT: Showing moderate improvement and behavior is in control MANAGEMENT PLAN: Continue with the current medicine possible discharge tomorrow. TIME SPENT: 20 minutes. Vital Signs Vital Signs Date Time Temp Pulse Resp B/P (MAP) Pulse Ox O2 Delivery O2 Flow Rate FiO2 01/12/21 06:46 98.0 67 18 112/55 (74) 99 Room Air Current Medications Current Medications Medications (Trade) Dose Ordered Sig/Lorna Route PRN Reason Start Time Stop Time Status Last Admin Dose Admin Acetaminophen (Tylenol Tab) 650 mg Q6HP PRN PO HEADACHE or MILD DISCOMFORT 01/04/21 16:40 Al Hydrox/Mg Hydrox/Simethicone (Mylanta) 30 ml Q4HP PRN PO HEARTBURN/INDIGESTION 01/04/21 16:40 Divalproex Sodium (Depakote Er) 250 mg BID PO 01/05/21 09:00 01/07/21 09:00 DC 01/07/21 08:00 Divalproex Sodium (Depakote Er) 250 mg DAILY PO 01/08/21 09:00 01/12/21 08:27 Divalproex Sodium (Depakote Er) 500 mg QHS PO 01/07/21 21:00 01/11/21 20:03 Haloperidol (Haldol) 5 mg Q6HP PRN PO AGITATION 01/04/21 21:45 01/09/21 10:14 Home Med (Med Rec Complete!) ASDIRECTED XX 01/04/21 08:30 01/04/21 08:31 DC Lorazepam (Ativan) 2 mg Q6HP PRN PO ANXIETY/AGITATION 01/04/21 21:45 01/11/21 14:12 DC 01/09/21 12:25 Lorazepam (Ativan) 2 mg STAT STAT PO 01/03/21 21:17 01/03/21 21:21 DC 01/03/21 21:25 Magnesium Hydroxide (Milk Of Magnesia) 30 ml DAILYPRN PRN PO CONSTIPATION 01/04/21 16:40 Miscellaneous (Unresolved Clarification Entry) SEE LABEL COMMENTS DAILY XX 01/11/21 09:00 01/11/21 14:13 DC Naproxen (Naprosyn) 500 mg BID PRN PO PAIN LEVEL 1-5 01/04/21 21:45 01/11/21 20:04 Nicotine (Nicoderm Cq 21mg) 1 patch DAILY PRN TD nicotine withdrawal 01/04/21 21:45 01/12/21 08:27 Quetiapine Fumarate (SEROquel XR) 200 mg QHS PO 01/04/21 21:00 01/05/21 10:02 DC 01/04/21 22:28 Quetiapine Fumarate (SEROquel) 300 mg QHS PO 01/05/21 21:00 01/11/21 20:03 Trazodone HCl (Desyrel) 50 mg QHSP PRN PO INSOMNIA 01/04/21 16:40 01/09/21 21:26 Allergies Coded Allergies: No Known Allergies (Verified , 06/28/17) JANET HEADLEY M.D. Jan 12, 2021 09:30
[2021-01-12] MEDS: NICOTINE 14 MG/24 HR TRANSDERMAL TD SCH (11:39)
[2021-01-12] MEDS: NAPROXEN 250 MG TAB PO PRN (16:13)
[2021-01-12 18:36] VITALS: BP 135/87
[2021-01-12] MEDS: DIVALPROEX 500MG *ER* TAB PO SCH (20:01)
[2021-01-12] MEDS: QUEtiapine FUMARATE 100 MG TAB PO SCH (20:02)
[2021-01-12] MEDS: traZODone 50 MG TAB PO PRN (21:08)
[2021-01-13 06:17] VITALS: BP 110/50
[2021-01-13] MEDS: NICOTINE 14 MG/24 HR TRANSDERMAL TD SCH (08:01)
[2021-01-13] MEDS: DIVALPROEX 250MG *ER* TAB PO SCH (08:02)
[2021-01-13] MEDS: NAPROXEN 250 MG TAB PO PRN (08:57)
[2021-01-13] MEDS ORDERED: DEPA500T2 PO (09:08)
[2021-01-13] MEDS ORDERED: DEPA250T2 PO (09:08)
[2021-01-13] MEDS ORDERED: QUET100T2 PO (09:08)
--- NOTE | 2021-01-14 11:25 | MHDSPDOC ---
[facility] Discharge Summary Discharge Summary DATE OF ADMISSION: Jan 04, 2021 at 16:37 DATE OF DISCHARGE: Jan 13, 2021 at 09:53 DISCHARGE DIAGNOSES: 1.. Bipolar disorder manic 2.. Rule out schizoaffective disorder REASON FOR ADMISSION: 25-year-old man with 2 recent admissions came back to emergency room due to increasing agitation bizarre behavior and not sleeping. Patient had 2 recent admissions due to acute psychotic episode but apparently has not been compliant with any medications after discharge and decompensated again and admitted for stabilization. CONSULTANTS INVOLVED: TREATMENT AND PROGRESS ON THE UNIT : Patient was started back on his Seroquel 200 mg at bedtime but also started on Depakote 250 mg twice a day to control his manic symptoms. Patient is fully cooperated and Depakote was increased to 250 mg in the morning and 500 mg at bedtime achieving blood level 61 while in therapeutic range. He is Seroquel was also increased to 300 mg at bedtime and he is fully cooperate.. HOSPITAL COURSE: With the combination of supportive therapy and medication adjustment patient is showing steady and significant improvement. He was initially somewhat disorganized preoccupied and labile. With the treatment is showing marked reduction in his psychomotor agitation and his speech is much better organized and his behavior is stable. He is denying any hallucination or paranoia and has been coming much more rational and coherent and did not exhibit any bizarre agitated behavior. DISCHARGE ASSESSMENT: Much improved and stable MENTAL STATUS EXAMINATION ON DISCHARGE: Patient is a 25-year old male, who is in no acute distress. Speech is relevant rational. Language skills are good. Thought processes including: Organized. Thought content: Denies any hallucination or paranoia. Abstract reasoning, and computation: Fair. Description of associations: Better organized. Description of abnormal or psychotic thoughts: No gross psychotic symptoms and denies any lethality. Judgment: Fair. Insight: Fair. Orientation to well oriented. Recent and remote memory: Unimpaired. Attention span and concentration: Fair. Language:. Fund of knowledge:. Mood: Euthymic. Affect: Appropriate. MEDICATIONS ON DISCHARGE: -For. Seroquel 300 mg at bedtime for 7 days 3 refills -For. Depakote 250 mg in the morning and 500 mg at bedtime for 7 days 3 refills -For. PLAN/FOLLOWUP ARRANGEMENTS: Arranged by buyer planner. The amount of time spent in the coordination of care for this patient was approximately 30 minutes. ETOH/Disorder Med Rx ETOH/DRUG DISORDER RX: N/A Vital Signs/I&Os Vital Signs Date Time Temp Pulse Resp B/P (MAP) Pulse Ox O2 Delivery O2 Flow Rate FiO2 01/13/21 06:17 98.8 78 18 110/50 (70) 97 Room Air Medications Scheduled Divalproex Sodium (Depakote ER) 250 Mg Tab.er.24h, 250 MG PO DAILY for mood for 7 Days, #7 Divalproex Sodium (Depakote ER) 500 Mg Tab.er.24h, 500 MG PO QHS for mood for 7 Days, #7 Nicotine (Nicotine Patch) 21 Mg Patch.td24, 21 MG TD DAILY, (Reported) WAS APPLIED TO LEFT DELTOID Quetiapine Fumarate (Quetiapine Fumarate) 100 Mg Tablet, 300 MG PO QHS for psychosis for 7 Days, #21 Scheduled PRN Naproxen (Naproxen) 500 Mg Tablet, 500 MG PO BID PRN for PAIN LEVEL 1-5, (Reported) Allergies Coded Allergies: No Known Allergies (Verified , 06/28/17) JANET HEADLEY M.D. Jan 14, 2021 11:25
== END 2021-01-13 09:53 | disposition home or self-care (01) | DRG 753 ==
LOC: M ED 16:15 → M ED INP 01-04 16:37 → M PSY 01-04 20:45
PROVIDERS: ADMIT Psychiatry & Neurology Psychiatry; ATTEND Psychiatry & Neurology Psychiatry
DX: F31.60 Bipolar disorder, current episode mixed, unspecified (principal); F25.9 Schizoaffective disorder, unspecified; F17.210 Nicotine dependence, cigarettes, uncomplicated; Z20.822 Contact with and (suspected) exposure to COVID-19; Z79.899 Other long term (current) drug therapy

== ENCOUNTER 2021-01-13 10:00 | Outpatient (RCR) | payer BC ==
[~2021-01-13 10:00] MED LIST changes: +DEPA250T2 PO; +DEPA500T2 PO; +NICO21DI37 TD; +QUET100T2 PO
== END 2021-01-15 ==
LOC: M OUTALCOH 10:00
PROVIDERS: ATTEND Psychiatry & Neurology Psychiatry
DX: F10.10 Alcohol abuse, uncomplicated (principal)

== ENCOUNTER 2021-02-14 14:00 | Outpatient (RCR) | payer BC | END 2021-02-15 | LOC: M OUTALCOH 14:00 | PROVIDERS: ATTEND Psychiatry & Neurology Psychiatry | DX: F10.10 Alcohol abuse, uncomplicated (principal) ==

== ENCOUNTER 2021-03-08 14:37 | Outpatient (RCR) | payer BC | END 2021-03-17 | LOC: M OUTALCOH 14:37 | PROVIDERS: ATTEND Psychiatry & Neurology Psychiatry | DX: F10.10 Alcohol abuse, uncomplicated (principal) ==

== ENCOUNTER 2021-11-10 22:26 | Emergency (ER) | payer BC ==
[~2021-11-10] VITALS: Ht 170.2 cm; Wt 77.0 kg
[2021-11-10 22:26] VITALS: BP 165/88
== END 2021-11-10 22:35 | disposition left against medical advice (07) ==
LOC: M ED 22:26
DX: Z53.21 Procedure and treatment not carried out due to patient leaving prior to being seen by health care provider (principal)

== ENCOUNTER 2024-01-08 13:22 | Emergency (ER) | payer BC ==
[~2024-01-08] VITALS: Ht 170.2 cm; Wt 73.9 kg
[~2024-01-08 13:22] MED LIST changes: -QUET200T54 PO; +QUET200T79 PO
[2024-01-08 13:24] VITALS: TEMP 98; O2SAT 100
[2024-01-08] MEDS ORDERED: ABIL400I IM (13:29)
[2024-01-08] MEDS: LIDOCAINE 5% (LIDODERM) PATCH TD ONE (14:55)
[2024-01-08] MEDS: diazePAM 5MG TABLET PO ONE (15:04)
[2024-01-08] MEDS: KETOROLAC 30 MG/ML 1ML VIAL IM ONE (15:04)
[2024-01-08] MEDS: ACETAMINOPHEN 500 MG TAB PO ONE (16:04)
[2024-01-08] MEDS: methocarbamoL 500 MG TAB PO ONE (16:04)
[2024-01-08] MEDS ORDERED: METH-1165 PO (17:00)
[2024-01-08] MEDS ORDERED: NAPR-837 PO (17:00)
[2024-01-08 17:11] VITALS: BP 117/65
== END 2024-01-08 17:12 | disposition home or self-care (01) ==
LOC: M ED 13:22
DX: S39.012A Strain of muscle, fascia and tendon of lower back, initial encounter (principal); X58.XXXA Exposure to other specified factors, initial encounter; J45.909 Unspecified asthma, uncomplicated; F31.9 Bipolar disorder, unspecified; F17.200 Nicotine dependence, unspecified, uncomplicated
CPT/HCPCS: 96372; 99283; J1885

== ENCOUNTER → 2024-01-10 | Outpatient (CLI) | payer BC ==
[~2024-01-10] MED LIST changes: +ABIL400I IM; +METH-1165 PO
== END ==
LOC: M WUC 11:42
PROVIDERS: ATTEND Student in an Organized Health Care Education/Training Program
DX: M54.50 Low back pain, unspecified (principal)

== ENCOUNTER 2024-02-26 17:51 | Emergency (ER) | payer BC ==
[~2024-02-26] VITALS: Ht 170.2 cm; Wt 72.1 kg
[2024-02-26 17:52] VITALS: BP 123/79; TEMP 97.4; O2SAT 99
== END 2024-02-26 19:57 | disposition home or self-care (01) ==
LOC: M ED 17:51
DX: U07.1 COVID-19 (principal); J45.909 Unspecified asthma, uncomplicated; F41.9 Anxiety disorder, unspecified; F31.9 Bipolar disorder, unspecified; F20.9 Schizophrenia, unspecified; Z87.891 Personal history of nicotine dependence; Z79.1 Long term (current) use of non-steroidal anti-inflammatories (NSAID); Z79.899 Other long term (current) drug therapy

== ENCOUNTER → 2025-03-14 | Outpatient (CLI) | payer BC ==
[~2025-03-14] MED LIST changes: -ABIL400I IM; +ARIP400S IM; +DEPA250T PO; -DEPA250T2 PO; -IBUP-1022 PO; +IBUP600T42 PO
[2025-03-14 10:35] LABS: PLATELET COUNT, AUTOMATED 275 10^3/uL (150-450)
== END ==
LOC: M LAB 08:47
PROVIDERS: ATTEND Psychiatry & Neurology Psychiatry
DX: F31.2 Bipolar disorder, current episode manic severe with psychotic features (principal)

== ENCOUNTER 2025-04-21 00:25 | Observation (INO) | payer BC ==
[~2025-04-21] VITALS: Ht 170.2 cm; Wt 74.1 kg
[2025-04-21] MEDS: KETOROLAC 30 MG/ML 1 ML VIAL IV ONE (01:00)
[2025-04-21] MEDS: METHOCARBAMOL 1,000 MG/10 ML VIAL IV ONE (01:00)
[2025-04-21] MEDS: ONDANSETRON 4MG/2ML VIAL IV ONE (02:19)
[2025-04-21] MEDS: MORPHINE 4 MG/ML 1 ML VIAL IV PRN (02:20)
[2025-04-21] MEDS ORDERED: TIZA10TA PO (09:42)
[2025-04-21] MEDS ORDERED: DEPA1TAB3 PO (09:42)
[2025-04-21] MEDS ORDERED: HOME MED LIST COMPLETE! XX SCH (09:45)
[2025-04-21 14:09] LABS: PLATELET COUNT, AUTOMATED 255 10^3/uL (150-450)
[2025-04-21] MEDS: KETOROLAC 30 MG/ML 1 ML VIAL IV SCH (14:21)
[2025-04-21] MEDS: ACETAMINOPHEN 500 MG TAB PO SCH (14:21)
[2025-04-21] MEDS: CYCLOBENZAPRINE 10 MG TABLET PO PRN (14:21)
[2025-04-21] MEDS ORDERED: DIVA500T9 PO (14:26)
[2025-04-21 14:40] LABS: ALT/SGPT 15.0 U/L (7.0-40); AST/SGOT 13.0 U/L (<34); CALCIUM LEVEL 8.8 MG/DL (8.5-10.1); CARBON DIOXIDE LEVEL 28.0 MMOL/L (20-31); CHLORIDE LEVEL 105.0 MMOL/L (98-107); CREATININE FOR GFR 1.18 MG/DL (0.70-1.30); GLOMERULAR FILTRATION RATE 85.1 (>60); POTASSIUM SERUM 4.0 MMOL/L (3.5-5.1); SODIUM LEVEL 141.0 MMOL/L (136-145)
[2025-04-21] MEDS: GABAPENTIN 100 MG CAP PO SCH (15:41)
[2025-04-21 20:30] VITALS: BP 126/70; TEMP 98.7; O2SAT 97
[2025-04-21] MEDS: DIVALPROEX 500 MG *ER* TAB PO SCH (21:40)
[2025-04-22 04:00] VITALS: BP 112/64; TEMP 99.2; O2SAT 97
[2025-04-22 12:00] VITALS: BP 139/85; TEMP 97.7; O2SAT 98
[2025-04-22] MEDS ORDERED: NEUR300C PO (13:10)
[2025-04-22] MEDS ORDERED: SFHIBU600 PO (13:10)
[2025-04-22] MEDS ORDERED: ACET-683 PO (13:10)
[2025-04-23] MEDS ORDERED: GABA-1172 PO (13:49)
[2025-04-23] MEDS ORDERED: ROLLMIS8 XX (16:15)
== END 2025-04-22 14:40 | disposition home or self-care (01) ==
LOC: EDBD 00:25 → M ED 00:25 → M ED INP 12:31 → M MS4PR 20:30
PROVIDERS: ADMIT Internal Medicine Nephrology; ATTEND Internal Medicine Nephrology
DX: M51.26 Other intervertebral disc displacement, lumbar region (principal); M51.16 Intervertebral disc disorders with radiculopathy, lumbar region; M51.369 Other intervertebral disc degeneration, lumbar region without mention of lumbar back pain or lower extremity pain; F31.9 Bipolar disorder, unspecified; G89.29 Other chronic pain; M48.061 Spinal stenosis, lumbar region without neurogenic claudication; F17.200 Nicotine dependence, unspecified, uncomplicated; Z79.899 Other long term (current) drug therapy
CPT/HCPCS: 36415; 72148; 80053; 85027; 96374; 96375; 96376; 97161; 99285; J1885; J2405; J2800

== ENCOUNTER 2025-04-23 08:32 | Emergency (ER) | payer BC ==
[~2025-04-23] VITALS: Ht 170.2 cm; Wt 76.4 kg
[~2025-04-23 08:32] MED LIST changes: +ACET-683 PO; +DEPA1TAB3 PO; +DIVA500T9 PO; +NEUR300C PO; +SFHIBU600 PO; +TIZA10TA PO
[2025-04-23] MEDS: KETOROLAC 30 MG/ML 1 ML VIAL IV ONE (11:56)
[2025-04-23 11:59] LABS: BASO # 0.0 10^3/uL (0.0-0.2); BASO % 0.6 % (0.0-1.0); EOS # 0.2 10^3/uL (0.0-0.5); EOS % 3.1 % (0.0-3.0); LYMPH # 2.1 10^3/uL (1.5-5.0); LYMPH % 32.0 % (24.0-44.0); MONO # 0.4 10^3/uL (0.0-0.8); MONO % 6.5 % (2.0-8.0); NEUTROPHILS # 3.7 10^3/uL (1.5-8.5); NEUTROPHILS % 57.6 % (36.0-66.0); PLATELET COUNT, AUTOMATED 262 10^3/uL (150-450)
[2025-04-23 12:23] LABS: C REACTIVE PROTEIN QUANTITATIV < 0.50 MG/DL (<1.0)
[2025-04-23 12:24] LABS: ALT/SGPT 15 U/L (7.0-40); AST/SGOT 14 U/L (<34); CALCIUM LEVEL 9.3 MG/DL (8.5-10.1); CARBON DIOXIDE LEVEL 30 MMOL/L (20-31); CHLORIDE LEVEL 104 MMOL/L (98-107); CREATININE FOR GFR 1.15 MG/DL (0.70-1.30); GLOMERULAR FILTRATION RATE 87.8 (>60); POTASSIUM SERUM 4.2 MMOL/L (3.5-5.1); SODIUM LEVEL 142 MMOL/L (136-145)
[2025-04-23] MEDS ORDERED: GABA-1172 PO (13:49)
[2025-04-23] MEDS ORDERED: HOME MED LIST COMPLETE! XX SCH (13:50)
[2025-04-23 16:12] VITALS: BP 129/78; O2SAT 97
[2025-04-23] MEDS ORDERED: ROLLMIS8 XX (16:15)
[2025-04-23 16:24] VITALS: TEMP 97.8
== END 2025-04-23 16:25 | disposition home or self-care (01) ==
LOC: EDBD 08:32 → M ED 08:32
DX: M54.50 Low back pain, unspecified (principal); F31.9 Bipolar disorder, unspecified; Z79.1 Long term (current) use of non-steroidal anti-inflammatories (NSAID); Z79.899 Other long term (current) drug therapy
CPT/HCPCS: 80053; 85025; 85652; 86140; 96374; 97161; 97530; 99284; J1100; J1885

== ENCOUNTER 2025-04-29 10:11 | Emergency (ER) | payer BC ==
[~2025-04-29] VITALS: Ht 170.2 cm; Wt 75.0 kg
[~2025-04-29 10:11] MED LIST changes: +GABA-1172 PO; +ROLLMIS8 XX
[2025-04-29] MEDS ORDERED: GABA-1172 PO (12:57)
[2025-04-29 13:02] VITALS: BP 122/65; TEMP 97.2; O2SAT 96
== END 2025-04-29 13:09 | disposition home or self-care (01) ==
LOC: M ED 10:11
DX: Z02.79 Encounter for issue of other medical certificate (principal); Z76.0 Encounter for issue of repeat prescription; J45.909 Unspecified asthma, uncomplicated; F10.10 Alcohol abuse, uncomplicated; M51.26 Other intervertebral disc displacement, lumbar region; Z79.1 Long term (current) use of non-steroidal anti-inflammatories (NSAID); Z79.899 Other long term (current) drug therapy